=== PATIENT | male | born 1935 | race Caucasian/White ===

== ENCOUNTER 2017-09-03 12:59 | Inpatient (IN) | payer MEDICARE, BC ==
[~2017-09-03] VITALS: Ht 167.6 cm; Wt 103.5 kg
[~2017-09-03 12:59] MED LIST: ALLO100 PO; AMLO5 PO; AMOCLA500 PO; ASPI81CH PO; ASPI81EC; ATOR10; ATOR10 PO; CODACE30; CYAN1000 PO; CYANOCOBALAMIN 1000 MCG; EPIN.3I IM; FINA5 PO; FURO20 PO; Ferrocite324 MG PO; GABA100 PO; GLIP10; GLIP10 PO; HYDACE25S PR; HYDACE5; HYDACE5 PO; HYDCHL12.5; HYDCHL25; Humalog100 UNIT/1 SC; INSLI100I SUBQ; INSULANI; LISI20; LISI20 PO; METF500 PO; Norco 10-325 T1 EACH PO; OMEP20ER; Omeprazole20 M1 PO; PARI1 PO; PIOG15; SIMV10 PO; TAMS.4ER PO; TOUJEO SOL300 UNIT/1 SQ
[2017-09-03 17:30] LABS: BASOPHILS ABSOLUTE AUTO 0.08 K/mm3 (0.00-0.23); BASOPHILS PERCENT AUTO 1 % (0-2); EOSINOPHILS ABSOLUTE AUTO 0.23 K/mm3 (0.00-0.68); EOSINOPHILS PERCENT AUTO 1 % (0-6); Hematocrit 37.7 % (37.0-53.0); Hemoglobin 11.8 g/dL (13.5-17.5); IMMATURE GRAN ABSOLUTE AUTO 0.08 K/mm3 (0.00-0.10); IMMATURE GRAN PERCENT AUTO 1 % (0-1); LYMPHOCYTES ABSOLUTE AUTO 2.48 K/mm3 (0.84-5.20); LYMPHOCYTES PERCENT AUTO 15 % (21-46); MONOCYTES ABSOLUTE AUTO 0.55 K/mm3 (0.16-1.47); MONOCYTES PERCENT AUTO 3 % (4-13); Mean Corpuscular HGB 29.6 pg (26.0-34.0); Mean Corpuscular HGB Conc 31.3 g/dL (31.5-36.5); Mean Corpuscular Volume 95 fL (80-100); Mean Platelet Volume 10.3 fL (9.1-12.4); NEUTROPHILS PERCENT AUTO 79 % (41-73); Platelet Count 250 K/mm3 (150-400); RDW Coefficient Variation 15.7 % (11.7-14.2); RDW Standard Deviation 54.5 fL (35.1-46.3); Red Blood Cell Count 3.98 M/mm3 (4.30-5.90); White Blood Cell Count 16.52 K/mm3 (4.00-11.30)
[2017-09-03 17:41] LABS: Albumin, Blood 3.6 g/dL (3.4-5.0); Albumin/Globulin Ratio 0.8 (0.8-1.8); Bilirubin, Total 1.1 mg/dL (0.1-1.0); Bun/Creatinine Ratio 30.4 (12.0-20.0); Calcium, Blood 10.9 mg/dL (8.5-10.1); Creatinine, Blood 2.63 mg/dL (0.60-1.20); Globulin, Blood 4.3 g/dL (2.2-4.0); Potassium, Blood 4.8 mmol/L (3.5-5.5); Total Protein, Blood 7.9 g/dL (6.4-8.2)
[2017-09-03] MEDS ORDERED: METO2.5 PO (18:23)
[2017-09-03] MEDS ORDERED: LISI20 PO (18:23)
[2017-09-03] MEDS ORDERED: TAMS.4ER PO (18:24)
[2017-09-03] MEDS ORDERED: CALC.25 PO (18:25)
[2017-09-04 00:16] LABS: Source, Urine Clean Catch
[2017-09-04 00:20] LABS: Bilirubin, Urine Neg (Neg); Blood, Urine Neg (Neg); Glucose Qualitative, Urine Neg (Neg); Ketones, Urine Neg (Neg); Leukocyte Esterase, Urine Neg (Neg); Nitrite, Urine Neg (Neg); Protein, Urine Neg (Neg); Urobilinogen, Urine NORM (Normal)
[2017-09-04 00:24] LABS: Appearance, Urine Clear (Clear); Color, Urine Yellow (P-Yellow)
[2017-09-04 05:31] LABS: Hematocrit 33.9 % (37.0-53.0); Hemoglobin 10.6 g/dL (13.5-17.5); Mean Corpuscular HGB 29.4 pg (26.0-34.0); Mean Corpuscular HGB Conc 31.3 g/dL (31.5-36.5); Mean Corpuscular Volume 94 fL (80-100); Mean Platelet Volume 10.1 fL (9.1-12.4); Platelet Count 245 K/mm3 (150-400); RDW Coefficient Variation 15.4 % (11.7-14.2); RDW Standard Deviation 52.9 fL (35.1-46.3); Red Blood Cell Count 3.61 M/mm3 (4.30-5.90); White Blood Cell Count 14.94 K/mm3 (4.00-11.30)
[2017-09-04 05:47] LABS: Albumin, Blood 3.2 g/dL (3.4-5.0); Albumin/Globulin Ratio 0.9 (0.8-1.8); Bilirubin, Total 0.3 mg/dL (0.1-1.0); Bun/Creatinine Ratio 33.8 (12.0-20.0); Calcium, Blood 9.7 mg/dL (8.5-10.1); Creatinine, Blood 2.13 mg/dL (0.60-1.20); Globulin, Blood 3.6 g/dL (2.2-4.0); Potassium, Blood 4.3 mmol/L (3.5-5.5); Total Protein, Blood 6.8 g/dL (6.4-8.2)
[2017-09-04 09:56] LABS: Campylobacter Sp Not Detected (NOT DETECT); Cryptosporidium Not Detected (NOT DETECT); E. Coli O157 Not Detected (NOT DETECT); Enteroaggregative E. coli-EAEC Not Detected (NOT DETECT); Enteropathogenic E. coli-EPEC Not Detected (NOT DETECT); Enterotoxigenic E. coli-ETEC Not Detected (NOT DETECT); Plesiomonas Shigelloides Not Detected (NOT DETECT); Salmonella Sp Not Detected (NOT DETECT); Shiga Toxin-prod E. coli-STEC Not Detected (NOT DETECT); Shigella/Enteroin E. coli-EIEC Not Detected (NOT DETECT); Vibrio Cholerae Not Detected (NOT DETECT); Vibrio Sp Not Detected (NOT DETECT); Yersinia Enterocolitica Not Detected (NOT DETECT)
[2017-09-04 09:57] LABS: Adenovirus F 40/41 Not Detected (NOT DETECT); Astrovirus Not Detected (NOT DETECT); Cyclospora Cayetanensis Not Detected (NOT DETECT); Entamoeba Histolytica Not Detected (NOT DETECT); Giardia Lamblia Not Detected (NOT DETECT); Norovirus GI/GII Not Detected (NOT DETECT); Rotavirus A Not Detected (NOT DETECT); Sapovirus Not Detected (NOT DETECT)
[2017-09-04] MEDS ORDERED: CHOL10002 PO (12:24)
[2017-09-04] MEDS ORDERED: CENTRUM SILVER1 EAC4 PO (12:24)
[2017-09-04] MEDS ORDERED: COQ10 PO (12:26)
[2017-09-04] MEDS ORDERED: Toviaz8 MG PO (14:43)
[2017-09-05 05:23] LABS: BASOPHILS ABSOLUTE AUTO 0.05 K/mm3 (0.00-0.23); BASOPHILS PERCENT AUTO 1 % (0-2); EOSINOPHILS ABSOLUTE AUTO 0.48 K/mm3 (0.00-0.68); EOSINOPHILS PERCENT AUTO 5 % (0-6); Hematocrit 33.5 % (37.0-53.0); Hemoglobin 10.5 g/dL (13.5-17.5); IMMATURE GRAN ABSOLUTE AUTO 0.04 K/mm3 (0.00-0.10); IMMATURE GRAN PERCENT AUTO 0 % (0-1); LYMPHOCYTES ABSOLUTE AUTO 2.52 K/mm3 (0.84-5.20); LYMPHOCYTES PERCENT AUTO 24 % (21-46); MONOCYTES ABSOLUTE AUTO 0.53 K/mm3 (0.16-1.47); MONOCYTES PERCENT AUTO 5 % (4-13); Mean Corpuscular HGB 28.9 pg (26.0-34.0); Mean Corpuscular HGB Conc 31.3 g/dL (31.5-36.5); Mean Corpuscular Volume 92 fL (80-100); Mean Platelet Volume 10.5 fL (9.1-12.4); NEUTROPHILS ABSOLUTE AUTO 7.09 K/mm3 (1.96-9.15); NEUTROPHILS PERCENT AUTO 66 % (41-73); Platelet Count 235 K/mm3 (150-400); RDW Coefficient Variation 15.7 % (11.7-14.2); RDW Standard Deviation 53.1 fL (35.1-46.3); Red Blood Cell Count 3.63 M/mm3 (4.30-5.90); White Blood Cell Count 10.71 K/mm3 (4.00-11.30)
[2017-09-05 05:49] LABS: Anion Gap 7 mmol/L (6-16); Blood Urea Nitrogen 55 mg/dL (8-24); Bun/Creatinine Ratio 32.2 (12.0-20.0); CO2, Blood 20 mmol/L (21-32); Calcium, Blood 9.4 mg/dL (8.5-10.1); Chloride, Blood 118 mmol/L (98-108); Creatinine, Blood 1.71 mg/dL (0.60-1.20); Glomerular Filtration Rate 41 (60-); Glucose, Blood 110 mg/dL (70-99); Phosphorus, Blood 1.9 mg/dL (2.5-4.9); Potassium, Blood 4.4 mmol/L (3.5-5.5); Sodium, Blood 145 mmol/L (136-145)
[2017-09-05] MEDS ORDERED: LIDO700A20 TOP (12:37)
== END 2017-09-05 14:23 | disposition home or self-care (01) | DRG 872 ==
LOC: ER 12:59 → MEDS 21:08 → ENPENDDIS 09-05 11:14 → MEDS 09-05 14:23
PROVIDERS: Family Medicine; Internal Medicine; Physician Assistant
DX: A41.9 Sepsis, unspecified organism (principal); N17.9 Acute kidney failure, unspecified; M54.9 Dorsalgia, unspecified; Z79.4 Long term (current) use of insulin; Z79.82 Long term (current) use of aspirin; N18.3 Chronic kidney disease, stage 3 (moderate); E11.22 Type 2 diabetes mellitus with diabetic chronic kidney disease; I12.9 Hypertensive chronic kidney disease with stage 1 through stage 4 chronic kidney disease, or unspecified chronic kidney disease; E86.0 Dehydration; N40.0 Benign prostatic hyperplasia without lower urinary tract symptoms; E78.00 Pure hypercholesterolemia, unspecified; K52.9 Noninfective gastroenteritis and colitis, unspecified; M25.551 Pain in right hip; M79.2 Neuralgia and neuritis, unspecified; E86.9 Volume depletion, unspecified; D63.1 Anemia in chronic kidney disease; Z98.52 Vasectomy status
CPT/HCPCS: 36415; 74176; 80053; 80069; 81003; 82272; 82947; 83690; 85025; 85027; 87507; 93005; 93010; 96361; 96374; 97110; 97116; 97161; 97165; 97535; 99285-25; G8978; G8979; G8987; G8988; G8989; J1650; J3010; J7030

== ENCOUNTER 2018-02-17 05:47 | Day surgery (SDC) | payer MEDICARE, BC ==
[~2018-02-17] VITALS: Ht 167.6 cm; Wt 97.5 kg
[~2018-02-17 05:47] MED LIST changes: +AMLO5; +CALC.25 PO; +CENTRUM SILVER1 EAC4 PO; +CHOL10002 PO; +COQ10 PO; +CYCL10 PO; +Cyclobenzaprine5 MG PO; +FERROUS SULFATE PO; +FURO20; +GABA400; +GABA400 PO; +LIDO700A20 TOP; +METO2.5; +METO2.5 PO; +Norvasc2.5 MG PO; +Percocet 5-3251 EACH PO; +TIZANIDINE HCL4 MG PO; +TOUJEO MAX300 UNIT/1; +TOUJEO MAX300 UNIT/1 SC; +Toviaz8 MG PO; +VITAMIN B122500 MC1 PO
== END 2018-02-17 22:43 | disposition home or self-care (01) ==
LOC: ORSCMMR 05:47 → ORD 07:30 → ORSCMMR 22:43
DX: M48.061 Spinal stenosis, lumbar region without neurogenic claudication (principal); Z53.9 Procedure and treatment not carried out, unspecified reason
CPT/HCPCS: 82947; J0690; J3010; J3370; J7120

== ENCOUNTER 2018-03-03 07:16 | Day surgery (SDC) | payer MEDICARE, BC ==
--- NOTE | 2018-03-03 09:35 | NUR ---
Surgical site prepped with 2% Chlorhexidine cloth wipe. History, Chart, Medications and Allergies reviewed before start of procedure. Lungs clear T/O to Auscultation. Patient confirms NPO status and agrees with scheduled surgery. Pre-Op teaching done. Pt verbalizes understanding. Patient reports completing Chlorhexadine shower X2 prior to admission to hospital.
--- NOTE | 2018-03-03 14:03 | NUR ---
03/03/18 1403 Jaimie Brand 1130 CEFAZOLIN 2000 MG IVPB ADMINISTERED PRE OP ANTIBIOTICS BY WA.MIAN
--- NOTE | 2018-03-03 15:35 | NUR ---
PT ARRIVED TO ROOM 218 FROM PACU PT IS S/P MICHEL L3-4 PT DENIES ROWDY AT THIS TIME GOOD STRENGHT BILAT PT GIVEN CL TO START NO NAUSEA PT FAMILY AT BEDSIDE ORIENTED TO ROOM
--- NOTE | 2018-03-03 17:20 | NUR ---
DR Nilam ROACH ANS SERVICE CALLED DR GARNICA ON MESSAGE LEFT RE STARTING PT HOME MEDS
--- NOTE | 2018-03-03 18:25 | NUR ---
DR GARNICA CALLED ORDERED PT'S HPME MEDS PT UNSURE WHEN HE HAD HIS DIURETICS PT FAMILY TO CHECK ON THEM AT HOME FOR HIM AND BRING HIS INSULIN TOUKEI PT TAKES IN AM PT ON RA BIOX 95-97%
--- NOTE | 2018-03-04 06:30 | NUR ---
SUMMARY: POD 1 L3-[address] ROACH. DRESSING REMAINS C/D/I. VSS, AFEBRILE, ROOM AIR. PT VOIDING CLEAR, YELLOW URINE. CBG RESULTS OF 366 MG/DL @ HS AND PT MEDICATED WITH 15 UNITS HUMOLOG. TOLERATING REG DIET WELL AND PAIN WELL CONTROLLED WITH 10MG ROXICODONE X3 THIS SHIFT. ANTICIPATE PT/OT AND POSSIBLE DC HOME LATER THIS DAY.
[2018-03-04] MEDS ORDERED: OXYC5 PO (17:05)
--- NOTE | 2018-03-04 17:59 | NUR ---
provided pt with discharge teaching, written prescriptions, removed peripheral IV wnl. pt and family caregivers state understanding of discharge instructions. pt and both escorted to awaiting vehicle via wheelchair with belongings in lap.
== END 2018-03-04 18:02 | disposition home health service (06) ==
LOC: ORSCMMR 07:16 → ORD 10:30 → SURS 15:35 → ORSCMMR 03-04 18:02
PROVIDERS: Orthopaedic Surgery
PROC: 01NB0ZZ Release Lumbar Nerve, Open Approach (ICD-10-PCS; principal; 2018-03-03 10:30)
DX: M48.062 Spinal stenosis, lumbar region with neurogenic claudication (principal); I10 Essential (primary) hypertension; E11.9 Type 2 diabetes mellitus without complications; E78.00 Pure hypercholesterolemia, unspecified; Z79.4 Long term (current) use of insulin; Z79.82 Long term (current) use of aspirin; Z79.899 Other long term (current) drug therapy
CPT/HCPCS: 82947; 97110; 97116; 97161; 97530; J0690; J1100; J1885; J2250; J2405; J3010; J3370; J7120

== ENCOUNTER → 2018-05-08 | Outpatient (CLI) | payer MEDICARE, BC ==
[~2018-05-08] MED LIST changes: +OXYC5 PO
[2018-05-08 19:35] LABS: Influenza A Positive (NEGATIVE); Influenza B Negative (NEGATIVE)
== END | disposition home or self-care (01) ==
LOC: LAB 16:26 → LAB SHORT 16:26
DX: R09.89 Other specified symptoms and signs involving the circulatory and respiratory systems (principal); R11.0 Nausea; R63.0 Anorexia
CPT/HCPCS: 87804

== ENCOUNTER 2018-10-16 14:04 | Emergency (ER) | payer MEDICARE, BC ==
[~2018-10-16] VITALS: Ht 167.6 cm; Wt 99.8 kg
[2018-10-16 16:51] LABS: BASOPHILS ABSOLUTE AUTO 0.07 K/mm3 (0.00-0.23); BASOPHILS PERCENT AUTO 1 % (0-2); EOSINOPHILS ABSOLUTE AUTO 0.41 K/mm3 (0.00-0.68); EOSINOPHILS PERCENT AUTO 3 % (0-6); Hematocrit 43.1 % (37.0-53.0); Hemoglobin 13.7 g/dL (13.5-17.5); IMMATURE GRAN ABSOLUTE AUTO 0.04 K/mm3 (0.00-0.10); IMMATURE GRAN PERCENT AUTO 0 % (0-1); LYMPHOCYTES ABSOLUTE AUTO 2.92 K/mm3 (0.84-5.20); LYMPHOCYTES PERCENT AUTO 24 % (21-46); MONOCYTES ABSOLUTE AUTO 0.55 K/mm3 (0.16-1.47); MONOCYTES PERCENT AUTO 5 % (4-13); Mean Corpuscular HGB 29.8 pg (26.0-34.0); Mean Corpuscular HGB Conc 31.8 g/dL (31.5-36.5); Mean Corpuscular Volume 94 fL (80-100); Mean Platelet Volume 10.2 fL (9.1-12.4); NEUTROPHILS ABSOLUTE AUTO 8.33 K/mm3 (1.96-9.15); NEUTROPHILS PERCENT AUTO 68 % (41-73); Platelet Count 229 K/mm3 (150-400); RDW Coefficient Variation 16.4 % (11.7-14.2); RDW Standard Deviation 56.3 fL (35.1-46.3); Red Blood Cell Count 4.59 M/mm3 (4.30-5.90); White Blood Cell Count 12.32 K/mm3 (4.00-11.30)
[2018-10-16 17:08] LABS: International Normalized Ratio 0.99; Prothrombin Time Results 10.5 Sec (9.7-11.5)
[2018-10-16 18:00] LABS: Albumin, Blood 3.6 g/dL (3.4-5.0); Albumin/Globulin Ratio 0.9 (0.8-1.8); Bilirubin, Total 0.5 mg/dL (0.1-1.0); Bun/Creatinine Ratio 29.6 (12.0-20.0); Calcium, Blood 10.6 mg/dL (8.5-10.1); Creatinine, Blood 1.69 mg/dL (0.60-1.20); Globulin, Blood 3.9 g/dL (2.2-4.0); Potassium, Blood 4.3 mmol/L (3.5-5.5); Total Protein, Blood 7.5 g/dL (6.4-8.2)
[2018-10-16] MEDS ORDERED: Lovenox100 MG/1 M SC (18:08)
== END 2018-10-16 18:47 | disposition home or self-care (01) ==
LOC: ER 14:04
PROVIDERS: Physician Assistant
DX: I82.431 Acute embolism and thrombosis of right popliteal vein (principal); I10 Essential (primary) hypertension; E11.9 Type 2 diabetes mellitus without complications; Z91.030 Bee allergy status; Z79.4 Long term (current) use of insulin; Z79.899 Other long term (current) drug therapy; Z79.82 Long term (current) use of aspirin; Z96.653 Presence of artificial knee joint, bilateral
CPT/HCPCS: 80053; 85025; 85610; 85730; 93970; 96372; 99284-25; J1650

== ENCOUNTER → 2022-03-14 | Outpatient (CLI) | payer MEDICARE, BC ==
[~2022-03-14] MED LIST changes: +Lovenox100 MG/1 M SC
== END ==
LOC: LAB SHORT 08:22 → PLD 08:22
DX: D48.5 Neoplasm of uncertain behavior of skin (principal)
CPT/HCPCS: 88305

== ENCOUNTER 2022-12-24 15:48 | Emergency (ER) | payer OTHER, MEDICARE, BC ==
[~2022-12-24] VITALS: Ht 170.2 cm; Wt 102.1 kg
[~2022-12-24 15:48] MED LIST changes: +HUMALOG KW100 UNIT/1 SC; -TOUJEO MAX300 UNIT/1 SC; +TOUJEO MAX300 UNIT/2 SC
[2022-12-24] MEDS ORDERED: Robaxin750 MG PO (18:09)
[2022-12-24] MEDS ORDERED: LIDOCAINE1 EACH TOP (18:09)
[2022-12-24 18:40] VITALS: BP 180/82
== END 2022-12-24 18:22 | disposition home or self-care (01) ==
LOC: ER 15:48
DX: M54.50 Low back pain, unspecified (principal); M25.552 Pain in left hip; W01.198A Fall on same level from slipping, tripping and stumbling with subsequent striking against other object, initial encounter; I10 Essential (primary) hypertension; E11.9 Type 2 diabetes mellitus without complications; Z91.030 Bee allergy status; Z79.899 Other long term (current) drug therapy; Z79.4 Long term (current) use of insulin; Z79.84 Long term (current) use of oral hypoglycemic drugs
CPT/HCPCS: 73522; 96374; 96375; 99284-25; A9270; J1885; J2270

== ENCOUNTER 2022-12-27 18:27 | Inpatient (IN) | payer MEDICARE, BC ==
[~2022-12-27] VITALS: Ht 167.6 cm; Wt 103.2 kg
[~2022-12-27 18:27] MED LIST changes: +LIDOCAINE1 EACH TOP; +Robaxin750 MG PO
[2022-12-27 19:17] LABS: BASOPHILS ABSOLUTE AUTO 0.05 K/mm3 (0.00-0.23); BASOPHILS PERCENT AUTO 0 % (0-2); EOSINOPHILS ABSOLUTE AUTO 0.03 K/mm3 (0.00-0.68); EOSINOPHILS PERCENT AUTO 0 % (0-6); Hematocrit 42.8 % (37.0-53.0); Hemoglobin 13.7 g/dL (13.5-17.5); IMMATURE GRAN ABSOLUTE AUTO 0.08 K/mm3 (0.00-0.10); IMMATURE GRAN PERCENT AUTO 1 % (0-1); LYMPHOCYTES PERCENT AUTO 11 % (21-46); MONOCYTES ABSOLUTE AUTO 0.63 K/mm3 (0.16-1.47); MONOCYTES PERCENT AUTO 4 % (4-13); Mean Corpuscular Volume 91 fL (80-100); Mean Platelet Volume 9.8 fL (9.1-12.4); NEUTROPHILS ABSOLUTE AUTO 13.23 K/mm3 (1.96-9.15); NEUTROPHILS PERCENT AUTO 84 % (41-73); Platelet Count 272 K/mm3 (150-400); RDW Coefficient Variation 15.6 % (11.7-14.2); RDW Standard Deviation 52.4 fL (35.1-46.3); Red Blood Cell Count 4.73 M/mm3 (4.30-5.90); White Blood Cell Count 15.82 K/mm3 (4.00-11.30)
[2022-12-27 19:37] LABS: Albumin/Globulin Ratio 0.7 (0.8-1.8); Bilirubin, Total 0.7 mg/dL (0.1-1.0); Bun/Creatinine Ratio 29.5 (12.0-20.0); Calcium, Blood 9.1 mg/dL (8.5-10.1); Creatinine, Blood 1.56 mg/dL (0.60-1.20); Globulin, Blood 4.4 g/dL (2.2-4.0); Magnesium, Blood 2.2 mg/dL (1.6-2.4); Potassium, Blood 4.5 mmol/L (3.5-5.5); Total Protein, Blood 7.4 g/dL (6.4-8.2)
[2022-12-27 22:35] LABS: Thyroid Stimulating Hormone 0.945 uIU/mL (0.360-4.800)
[2022-12-27 23:42] LABS: Influenza A, PCR NEGATIVE (NEGATIVE); Influenza B, PCR NEGATIVE (NEGATIVE); SARS-Cov-2 (COVID-19) PCR, MMC NEGATIVE (NEGATIVE)
[2022-12-28] VITALS (8 sets, daily range): BP systolic 92–157; BP diastolic 68–109
[2022-12-28] LABS: Resp Syncytial Virus, PCR POSITIVE (NEGATIVE)
[2022-12-28 00:48] LABS: Source, Urine Clean Catch
[2022-12-28 01:08] LABS: Bilirubin, Urine Neg (Neg); Blood, Urine 5+ (Neg); Glucose Qualitative, Urine Neg (Neg); Ketones, Urine 1+ (Neg); Leukocyte Esterase, Urine 2+ (Neg); Nitrite, Urine Neg (Neg); Protein, Urine 1+ (Neg); Specific Gravity, Urine 1.015 (1.003-1.022); Urobilinogen, Urine NORM (Normal)
[2022-12-28 01:15] LABS: Appearance, Urine Hazy (Clear); Color, Urine Yellow (P-Yellow)
[2022-12-28 01:17] LABS: Bacteria Mod /hpf; Red Blood Cells, Urine 25-50 /hpf (0-2); Squamous Epithelial Cells Few /hpf (Few); White Blood Cells, Urine 25-50 /hpf (0-5)
[2022-12-28 02:28] LABS: Bun/Creatinine Ratio 29.9 (12.0-20.0); Calcium, Blood 8.8 mg/dL (8.5-10.1); Creatinine, Blood 1.54 mg/dL (0.60-1.20); Magnesium, Blood 2.3 mg/dL (1.6-2.4); Potassium, Blood 4.1 mmol/L (3.5-5.5)
[2022-12-28 04:56] LABS: BASOPHILS ABSOLUTE AUTO 0.06 K/mm3 (0.00-0.23); BASOPHILS PERCENT AUTO 0 % (0-2); EOSINOPHILS ABSOLUTE AUTO 0.15 K/mm3 (0.00-0.68); EOSINOPHILS PERCENT AUTO 1 % (0-6); Hematocrit 39.5 % (37.0-53.0); Hemoglobin 12.6 g/dL (13.5-17.5); IMMATURE GRAN ABSOLUTE AUTO 0.07 K/mm3 (0.00-0.10); IMMATURE GRAN PERCENT AUTO 1 % (0-1); LYMPHOCYTES ABSOLUTE AUTO 5.24 K/mm3 (0.84-5.20); LYMPHOCYTES PERCENT AUTO 35 % (21-46); MONOCYTES ABSOLUTE AUTO 0.92 K/mm3 (0.16-1.47); MONOCYTES PERCENT AUTO 6 % (4-13); Mean Corpuscular HGB Conc 31.9 g/dL (31.5-36.5); Mean Corpuscular Volume 91 fL (80-100); Mean Platelet Volume 9.9 fL (9.1-12.4); NEUTROPHILS ABSOLUTE AUTO 8.69 K/mm3 (1.96-9.15); NEUTROPHILS PERCENT AUTO 57 % (41-73); Platelet Count 264 K/mm3 (150-400); RDW Coefficient Variation 15.6 % (11.7-14.2); RDW Standard Deviation 52.4 fL (35.1-46.3); Red Blood Cell Count 4.35 M/mm3 (4.30-5.90); White Blood Cell Count 15.13 K/mm3 (4.00-11.30)
[2022-12-28 05:24] LABS: International Normalized Ratio 1.24; Prothrombin Time Results 12.9 Sec (9.7-11.5)
[2022-12-28 05:27] LABS: Anti-Xa UFH, PHA Monitoring >1.50 IU/mL; Bun/Creatinine Ratio 28.5 (12.0-20.0); Calcium, Blood 8.3 mg/dL (8.5-10.1); Creatinine, Blood 1.51 mg/dL (0.60-1.20); Potassium, Blood 3.8 mmol/L (3.5-5.5)
--- NOTE | 2022-12-28 17:35 | NUR ---
"Spiritual Care | Pt. request Pt. is awake in bed and welcomes my visit. Pt. verbalized interest in whether casino host Tim was in the building, as they had developed rapport in the past. Pt. is pleasant. Facilitated a life review. Pt. displayed an evidence of being aware and engaged, and no evidence of anxiety. Prayed with Pt. Pt. verbalized gratitude for the the spiritual care visit. Pt. requested that this casino host inform Soren that he is in the hospital."
--- NOTE | 2022-12-28 18:48 | NUR ---
SHIFT SUMMARY PATIENT NEW ADMIT TO UNIT FROM ER FOR AFLUTTER RVR AND LUMBAR AND LEFT HIP PAIN. ALERT, ORIENTED, PLEASANT, COOPERATIVE. SEVERE LEFT HIP PAIN WITH MOVEMENT, SLIDE TRANSFERRED FROM [facility] TO BED. MANAGED PAIN WITH IV DILAUDID. 2L O2 VIA NC WEANED TO ROOM AIR. AFLUTTER AT 140'S ON TELE, AMIO GTT RUNNING. STARTED PO METOPROLOL, AND DIGOXIN IV PUSHES. HEPARIN GTT STARTED. NS INFUSING. ATTENDS IN PLACE AND CHANGED PRN. TOLERATING SIPS OF WATER, ACHS, BLOOD SUGAR STABLE. UPDATED BOTH DAUGHTERS OVER THE PHONE. FAMILY IS REQUESTING A CARDIOLOGY CONSULT, WILL NOTIFY DR AGUILAR. WILL REPORT TO AIR COMPRESSOR MECHANIC RN.
[2022-12-29] VITALS (13 sets, daily range): BP systolic 85–148; BP diastolic 58–97
--- NOTE | 2022-12-29 00:54 | NUR ---
UPDATE CALL PLACED TO RESIDENT WITH UPDATE ON PATIENT CONDITION. PATIENT REMAINS A/O x4, DROWSY BUT WAKES TO VERBAL STIMULI. TELE CONTINUES TO READ ALFUTTER WITH RATE 140-150. AMIO GTT FINISHED INFUSING AT 2300. SEE EMAR FOR OTHER MEDICATION ADMINISTRATIONS. BLOOD PRESSURE HAS BEEN TRENDING DOWN SINCE START OF SHIFT, SEE VITALS. RESIDENT STATED SHE WILL DISCUSS WITH ATTENDING, NO NEW ORDERS RECEIVED AT THIS TIME.
[2022-12-29 02:27] LABS: BASOPHILS ABSOLUTE AUTO 0.06 K/mm3 (0.00-0.23); BASOPHILS PERCENT AUTO 0 % (0-2); EOSINOPHILS ABSOLUTE AUTO 0.32 K/mm3 (0.00-0.68); EOSINOPHILS PERCENT AUTO 2 % (0-6); Hematocrit 38.8 % (37.0-53.0); Hemoglobin 12.3 g/dL (13.5-17.5); IMMATURE GRAN ABSOLUTE AUTO 0.09 K/mm3 (0.00-0.10); IMMATURE GRAN PERCENT AUTO 1 % (0-1); LYMPHOCYTES ABSOLUTE AUTO 3.93 K/mm3 (0.84-5.20); LYMPHOCYTES PERCENT AUTO 26 % (21-46); MONOCYTES ABSOLUTE AUTO 0.88 K/mm3 (0.16-1.47); MONOCYTES PERCENT AUTO 6 % (4-13); Mean Corpuscular HGB 28.7 pg (26.0-34.0); Mean Corpuscular HGB Conc 31.7 g/dL (31.5-36.5); Mean Corpuscular Volume 91 fL (80-100); Mean Platelet Volume 9.7 fL (9.1-12.4); NEUTROPHILS ABSOLUTE AUTO 9.72 K/mm3 (1.96-9.15); NEUTROPHILS PERCENT AUTO 65 % (41-73); Platelet Count 276 K/mm3 (150-400); RDW Coefficient Variation 15.7 % (11.7-14.2); RDW Standard Deviation 52.2 fL (35.1-46.3); Red Blood Cell Count 4.28 M/mm3 (4.30-5.90)
[2022-12-29 02:39] LABS: Bun/Creatinine Ratio 28.9 (12.0-20.0); Calcium, Blood 8.2 mg/dL (8.5-10.1); Creatinine, Blood 1.49 mg/dL (0.60-1.20); Magnesium, Blood 2.2 mg/dL (1.6-2.4); Potassium, Blood 4.2 mmol/L (3.5-5.5)
--- NOTE | 2022-12-29 03:15 | NUR ---
UPDATE CALL RECEIVED FROM HOSPITALIST BEATRIZ. ORDERS RECIEVED FOR LABS TO BE DRAWN, FLUID ORDER CHANGED, CARDIOLOGY CONSULT AND PATIENT TO BE NPO. HR REMAINING 145-148, MANUAL BP 122/86. NO OTHER CHANGES, WILL CONTINUE TO MONITOR.
--- NOTE | 2022-12-29 06:05 | NUR ---
SHIFT SUMMARY PATIENT ALERT AND ORIENTED x4, ABLE TO MAKE NEEDS KNOWN TO STAFF, HR CONTINUES TO RUN 140s DESPITE INTERVENTIONS. PATIENT WITH SOFT BPs AT TIMES. DENIES CHEST PAIN OR SOB. MEDICATED PER EMAR FOR PAIN/SPASMS. HEAT PAD PROVIDED FOR COMFORT. USING URINAL WITH ASSISTANCE, DARK YELLOW URINE OUT. PATIENT DECLINING TURNS AT TIMES DUE TO SPASMS OR PAIN. CARDIOLOGY CONSULTED FOR THIS AM, NPO SINCE 0300. NO OTHER CHANGES, SEE PREVIOUS NOTES FOR OTHER UPDATES. WILL REPORT TO DAY SHIFT RN.
[2022-12-29 09:13] LABS: Hematocrit 38.2 % (37.0-53.0); Hemoglobin 12.2 g/dL (13.5-17.5); Mean Corpuscular HGB 29.3 pg (26.0-34.0); Mean Corpuscular HGB Conc 31.9 g/dL (31.5-36.5); Mean Corpuscular Volume 92 fL (80-100); Mean Platelet Volume 9.9 fL (9.1-12.4); Platelet Count 271 K/mm3 (150-400); RDW Coefficient Variation 15.7 % (11.7-14.2); RDW Standard Deviation 52.7 fL (35.1-46.3); Red Blood Cell Count 4.17 M/mm3 (4.30-5.90); White Blood Cell Count 14.95 K/mm3 (4.00-11.30)
[2022-12-29 09:32] LABS: Bun/Creatinine Ratio 28.6 (12.0-20.0); Calcium, Blood 8.1 mg/dL (8.5-10.1); Creatinine, Blood 1.54 mg/dL (0.60-1.20); Potassium, Blood 4.1 mmol/L (3.5-5.5)
--- NOTE | 2022-12-29 13:17 | NUR ---
UPDATE PT DOWN TO CT FOR SCAN. PT C/O OF CHEST PAIN WHILE IN IMAGING. CP CONTINUED WHEN BACK TO ROOM. PT DESCRIBES IT PRESSURE ON TOP OF CHEST. DENIES RADIATING TO ANYWHERE ELSE. CALL PLACED TO MD HODGES. MD HODGES W/ ORDERS FOR EKG, TOPROL, AND NITROPASTE, SEE EMAR.
--- NOTE | 2022-12-29 17:22 | NUR ---
shift summary to continue on update. md prater to room this afternoon. pt states chest pain is worse when breathing. md prater states pleuretic pain. EKG unchanged from previous. nitro paste dc'd. metoprolol po given. Pt a7ox4. sp02>90% on ra. Coughing up davila/clear sputum, audible congested until he coughs. Suction encouraged. telemetry shows afib, hr mostly 150's. bp stable this shift, manual and automatic done, see vitals. Condom cath applied this shift, draining yellow urine. no bm. Pt extremely painful w/ repositioning, medicating per emar, see emar. md sarmiento consulted this shift. fluids finished infusing (x1 bag) this shift. Pt currently resting in room. Call light in reach.
[2022-12-30] VITALS (7 sets, daily range): BP systolic 104–127; BP diastolic 58–86
[2022-12-30 04:41] LABS: Hematocrit 37.5 % (37.0-53.0); Hemoglobin 11.7 g/dL (13.5-17.5)
[2022-12-30 05:16] LABS: Albumin, Blood 2.5 g/dL (3.4-5.0); Anion Gap 8 mmol/L (6-16); Blood Urea Nitrogen 48 mg/dL (8-24); Bun/Creatinine Ratio 25.9 (12.0-20.0); CO2, Blood 20 mmol/L (21-32); Calcium, Blood 8.3 mg/dL (8.5-10.1); Chloride, Blood 116 mmol/L (98-108); Creatinine, Blood 1.85 mg/dL (0.60-1.20); Glomerular Filtration Rate 35 (60-); Glucose, Blood 152 mg/dL (70-99); Magnesium, Blood 2.4 mg/dL (1.6-2.4); Phosphorus, Blood 3.6 mg/dL (2.5-4.9); Potassium, Blood 4.5 mmol/L (3.5-5.5); Sodium, Blood 144 mmol/L (136-145)
--- NOTE | 2022-12-30 06:06 | NUR ---
SHIFT SUMMARY PATIENT DROWSY DURING THE NIGHT BUT WAKES TO VERBAL STIMULI, A/Ox4, ABLE TO MAKE NEEDS KNOWN TO STAFF. BP STABLE, TELE READING AFLUTTER 120-150 DURING THE NIGHT, REMAINED ON RA WITH SPO2 MID 90s. PATIENT REPORTING PAIN DURING THE NIGHT, DESCRIBES IT SHOOTING SPASMS ON LEFT SIDE, MEDICATED PER EMAR. EDUCATED PATIENT ON IMPORTANCE OF TURNING, PATIENT DECLINING REPOSITIONING, STATES "OH THAT WILL JUST SEND ME INTO ORBIT". PATIENT ADJUSTED IN BED OFTEN HE WOULD ALLOW. CONDOM CATH IN PLACE DRAINING DARK YELLOW URING TO GRAVITY. NO OTHER CHANGES DURING THE NIGHT, WILL REPORT TO DAY SHIFT RN.
--- NOTE | 2022-12-30 07:30 | NUR ---
ASSUMED CARE: PT RESTING IN BED AT THIS TIME, EYES CLOSED, EVEN RESPIRTATIONS NOTED. TELE SHOWS AFLUTTER IN 120S AT THIS TIME. NO ACUTE NEEDS OR CONCERNS.
--- NOTE | 2022-12-30 08:56 | NUR ---
DR AGUILAR ROUNDED ON PT AND IS AWARE THAT PT CONTINUES TO C/O PAIN. PT STATES LEFT FLANK THAT MOVES FORWARD TO GROIN. DR AGUILAR STATES IT SOUNDS RELATED TO KIDNEY STONE BUT IMAGING SHOWS NONOBSTRUCTING. STATES HE WILL SPEAK TO UROLOGY AND UPDATE STAFF FURTHER. DR ALSO AWARE THAT PT HAS BEEN REFUSING INSULIN SINCE IT IS DIFFERENT THAN HOME REGIMEN. STATES TO CONTINUE MONITOR CBG AND GOAL IS BELOW 180. STATES HE WILL ORDER MUCINEX FOR COUGH.
--- NOTE | 2022-12-30 13:54 | NUR ---
DR AGUILAR CALLED AND SAID HE SPOKE TO A DR ADEN WHO REVIEWED CT AND DID NOT FEEL THAT PAIN WAS COMING FROM KIDNEY STONE BUT FROM CONSTIPATION. DR AGUILAR AWARE PT ALREADY HAD BM TODAY AND WANTS PT TO HAVE FURTHER. PT EDUCATED ON NEED FOR AMBULATION, ESPECIALLY WITH PAIN MEDICATIONS. PHYSICAL THERAPY ALSO ENCOURAGED AMBULATION
--- NOTE | 2022-12-30 17:38 | NUR ---
SHIFT SUMMARY: PT HAS REMAINED ON RA, IN AFLUTTER ON TELE, CURRENTLY AT 118. MEDICATED X1 FOR PAIN. MEDICATED X1 FOR BM AND PT HAD 2 LARGE BOWEL MOVEMENTS THIS SHIFT. GOT UP TO BSC WITH FWW AND 1 ASSIST ONCE. STATES PAIN IS IMPROVING BUT STILL GETS SOME DISCOMFORT WITH REPOSITIONING. NO ACUTE NEEDS OR CONCERNS AT THIS TIME.
[2022-12-31 04:22] VITALS: BP 115/77
[2022-12-31 04:28] LABS: Hematocrit 37.6 % (37.0-53.0); Hemoglobin 11.9 g/dL (13.5-17.5)
[2022-12-31 04:45] LABS: Albumin, Blood 2.5 g/dL (3.4-5.0); Anion Gap 11 mmol/L (6-16); Blood Urea Nitrogen 78 mg/dL (8-24); Bun/Creatinine Ratio 33.3 (12.0-20.0); CO2, Blood 18 mmol/L (21-32); Calcium, Blood 8.3 mg/dL (8.5-10.1); Chloride, Blood 108 mmol/L (98-108); Creatinine, Blood 2.34 mg/dL (0.60-1.20); Glomerular Filtration Rate 27 (60-); Glucose, Blood 492 mg/dL (70-99); Magnesium, Blood 2.8 mg/dL (1.6-2.4); Phosphorus, Blood 4.3 mg/dL (2.5-4.9); Potassium, Blood 5.1 mmol/L (3.5-5.5); Sodium, Blood 137 mmol/L (136-145)
--- NOTE | 2022-12-31 06:52 | NUR ---
SHIFT SUMMARY PATIENT ALERT AND ORIENTED x4, ABLE TO MAKE NEEDS KNOWN TO STAFF. BP STABLE, TELE READING AFLUTTER 100-110s. SPO2 >92% ON RA. ABDOMEN DISTENDED, PATIENT HAD LARGE BM DURING THE NIGHT, DECLINING ADDITIONAL BOWEL PREP AT THIS TIME. PATIENT REPORTING PAIN DURING THE NIGHT, MEDICATED PER EMAR. TURNED PATIENT WOULD ALLOW. CONDOM CATH IN PLACE DRAING DARK YELLOW URINE TO GRAVITY. 24 HOUR URINE COMPLETED THIS AM. GLUCOSE 492 ON AM LABS, NEW ORDERS PLACED. CT SCAN DONE THIS AM. NO OTHER CHANGES THIS SHIFT, WILL REPORT TO DAY SHIFT RN.
[2022-12-31 06:55] LABS: Protein, Urine Quantitative 14.3 mg/dL (0.0-11.9)
[2022-12-31 08:03] VITALS: BP 106/69
--- NOTE | 2022-12-31 08:52 | NUR ---
ASSUMTION OF CARE PT ALERT, ORIENTED X4; CALM AND COOPERTIVE WITH CARE. PT UP IN RECLINER WITH 1 PERSON ASSIST. PT DENIES PAIN, CHEST PAIN/PRESSURE, SOB, NAUSEA, DIZZINESS AND NUMB/TINGLING. SPO2 >90% ON RA, BREATHING EVEN AND UNLABORED, LS COARSE T/O. TELE ALFUTTER 120'S, BP STABLE. ABD SLIGHT DISTENDED, NONTEDNER WITH NORMOACTIVE BT NOTED. EDEMA NOTED TO RLE >LLE. OTHER VSS. NO OTHER ACUTE CHANGES NOTED. WILL CONTINUE TO MONITOR.
[2022-12-31 11:43] VITALS: BP 109/64
[2022-12-31 15:02] VITALS: BP 96/62
--- NOTE | 2022-12-31 17:23 | NUR ---
Shift Summary Pt apprears to be having visual hallucinations, states there are bugs crawling on the wall/floors and that his dog is at bedside. Notified Dr Harding. Tele 90-120's, other vss. CBG trending down from 400's down to 389, plans to restart lantus this evening. No other acute changes noted. Will continue to monitor.
[2022-12-31 20:16] VITALS: BP 108/68
[2022-12-31 23:26] VITALS: BP 107/73; BP 97/70
[2023-01-01 02:54] VITALS: BP 96/68
[2023-01-01 05:46] LABS: BASOPHILS ABSOLUTE AUTO 0.02 K/mm3 (0.00-0.23); BASOPHILS PERCENT AUTO 0 % (0-2); EOSINOPHILS ABSOLUTE AUTO 0.18 K/mm3 (0.00-0.68); EOSINOPHILS PERCENT AUTO 1 % (0-6); Hematocrit 35.3 % (37.0-53.0); Hemoglobin 11.4 g/dL (13.5-17.5); IMMATURE GRAN ABSOLUTE AUTO 0.12 K/mm3 (0.00-0.10); IMMATURE GRAN PERCENT AUTO 1 % (0-1); LYMPHOCYTES ABSOLUTE AUTO 2.05 K/mm3 (0.84-5.20); LYMPHOCYTES PERCENT AUTO 14 % (21-46); MONOCYTES ABSOLUTE AUTO 0.78 K/mm3 (0.16-1.47); MONOCYTES PERCENT AUTO 5 % (4-13); Mean Corpuscular HGB 29.1 pg (26.0-34.0); Mean Corpuscular HGB Conc 32.3 g/dL (31.5-36.5); Mean Corpuscular Volume 90 fL (80-100); Mean Platelet Volume 10.8 fL (9.1-12.4); NEUTROPHILS ABSOLUTE AUTO 11.78 K/mm3 (1.96-9.15); NEUTROPHILS PERCENT AUTO 79 % (41-73); Platelet Count 309 K/mm3 (150-400); RDW Coefficient Variation 15.5 % (11.7-14.2); Red Blood Cell Count 3.92 M/mm3 (4.30-5.90); White Blood Cell Count 14.93 K/mm3 (4.00-11.30)
--- NOTE | 2023-01-01 06:09 | NUR ---
SHIFT SUMMARY PATIENT ALERT, ORIENTED x3, PATIENT MORE FIDGETY THIS SHIFT AND HAS GOTTEN MINIMAL SLEEP DURING THE NIGHT. PATIENT WILL CONVERSE WITH SELF IN ROOM, WHEN THIS RN ASKS PATIENT WHO HE IS TALKING TO THE PATIENT WILL LAUGH AND STATE "OH I DON'T KNOW". FOLLOWING DIRECTIONS OTHERWISE. BP STABLE, SOFT AT TIMES, TELE READING AFLUTTER 110-120s. PATIENT REMAINED ON RA WITH SPO2 >95%. TURNING PATIENT WOULD ALLOW. CONDOM CATH IN PLACE DRAINING DARK YELLOW URINE TO GRAVITY. NO OTHER SIGNIFICANT CHANGES DURING THE NIGHT, WILL REPORT TO DAY SHIFT RN.
[2023-01-01 06:43] LABS: Albumin, Blood 2.5 g/dL (3.4-5.0); Anion Gap 9 mmol/L (6-16); Blood Urea Nitrogen 94 mg/dL (8-24); Bun/Creatinine Ratio 34.6 (12.0-20.0); CO2, Blood 24 mmol/L (21-32); Calcium, Blood 8.5 mg/dL (8.5-10.1); Chloride, Blood 106 mmol/L (98-108); Creatinine, Blood 2.72 mg/dL (0.60-1.20); Glomerular Filtration Rate 22 (60-); Glucose, Blood 385 mg/dL (70-99); Magnesium, Blood 2.9 mg/dL (1.6-2.4); Phosphorus, Blood 3.7 mg/dL (2.5-4.9); Potassium, Blood 4.3 mmol/L (3.5-5.5); Sodium, Blood 139 mmol/L (136-145)
[2023-01-01 08:05] VITALS: BP 109/79
[2023-01-01 12:20] VITALS: BP 114/76
--- NOTE | 2023-01-01 19:22 | NUR ---
Shift Summary Pt alert, oriented x3; calm and cooperative with care. Pt continues to hallucinate, stating spiders and cats on the wall. Pt reporting pain to left side/back, medicated per emar, placed heating pad and lido patch. Spo2 >90% on ra, coarse ls t/o, moist productive cough noted. Tele aflutter 120-130 this am, restared amio 80-120's, bp stable. Abd distender, soft, nontender. Edema noted rle >lle. Other vss. No other acute changes noted. Report given to oncoming rn.
[2023-01-01 20:35] VITALS: BP 112/71
[2023-01-01 23:48] VITALS: BP 121/71
[2023-01-02] VITALS (12 sets, daily range): BP systolic 104–149; BP diastolic 54–93
--- NOTE | 2023-01-02 04:48 | NUR ---
SHIFT SUMMARY LETHARGIC, ORIENTED TO SELF. CONTINUES TO HAVE VISUAL HALLUCINATIONS. WET, CROUPY COUGH. DEEP SUCTIONING PER RT WITH SMALL AMOUNT OF SPUTUM. C/O BACK PAIN, MEDICATED PER EMAR. SPO2 >92% ON RA. TELE AFLUTTER 80-120. VSS, BED IN LOWEST POSITION WITH CALL LIGHT IN REACH. WILL CONTINUE TO MONITOR AND REPORT TO ONCOMING RN.
[2023-01-02 05:06] LABS: Hematocrit 35.1 % (37.0-53.0); Hemoglobin 11.4 g/dL (13.5-17.5); Mean Corpuscular HGB 29.1 pg (26.0-34.0); Mean Corpuscular HGB Conc 32.5 g/dL (31.5-36.5); Mean Corpuscular Volume 90 fL (80-100); Mean Platelet Volume 10.6 fL (9.1-12.4); Platelet Count 312 K/mm3 (150-400); RDW Coefficient Variation 15.4 % (11.7-14.2); RDW Standard Deviation 50.8 fL (35.1-46.3); Red Blood Cell Count 3.92 M/mm3 (4.30-5.90); White Blood Cell Count 14.95 K/mm3 (4.00-11.30)
[2023-01-02 05:37] LABS: Albumin, Blood 2.7 g/dL (3.4-5.0); Anion Gap 7 mmol/L (6-16); Blood Urea Nitrogen 91 mg/dL (8-24); Bun/Creatinine Ratio 34.9 (12.0-20.0); CO2, Blood 26 mmol/L (21-32); Chloride, Blood 107 mmol/L (98-108); Creatinine, Blood 2.61 mg/dL (0.60-1.20); Glomerular Filtration Rate 23 (60-); Glucose, Blood 276 mg/dL (70-99); Phosphorus, Blood 3.5 mg/dL (2.5-4.9); Potassium, Blood 4.4 mmol/L (3.5-5.5); Sodium, Blood 140 mmol/L (136-145)
[2023-01-02 12:15] LABS: PCO2 Arterial 43.6 mmHg (35-45); pH Blood Arterial 7.42 (7.35-7.45)
--- NOTE | 2023-01-02 18:43 | NUR ---
Shift Summary Pt sleeping this am, wakes to verbal stimuli, oriented to self, place and month/year. Pt appears to be sleeping for majoirty of shift. No reports of hallucinations during shift. Pt reports pain, medicated per emar, heating pad and lidocaine patch in place. Spo2 occasionally dropped to 88-89% while sleeping; ABG this afternoon, results called into Dr Moody, new order to place on 02, pt placed on 2l o2 via nc. New order for Lasix IV 80mg this afternoon per Dr Moody. Tele aflutter this am, converted to sinus 70-80's at approx 1130. Other vss. Speech therapy completed during shift. No other acute changes noted. Updated Dr Moody on urine output during shift, new orders for lasix 160 mg now and cates catheter for strict i&os.
--- NOTE | 2023-01-02 20:45 | NUR ---
CALL TO PHYSICIAN NOTIFIED PHYSICIAN THAT CBG WAS 329 AND THE ONLY NIGHT TIME INSULIN COVERAGE THAT WAS ORDERED WAS LONG ACTING. NO NEW ORDERS AT THIS TIME.
[2023-01-02 21:26] LABS: Source, Urine Foley catheter
[2023-01-02 21:47] LABS: Bilirubin, Urine Neg (Neg); Blood, Urine 3+ (Neg); Glucose Qualitative, Urine 1+ (Neg); Ketones, Urine Neg (Neg); Leukocyte Esterase, Urine 1+ (Neg); Nitrite, Urine Neg (Neg); Protein, Urine Neg (Neg); Specific Gravity, Urine 1.015 (1.003-1.022); Urobilinogen, Urine NORM (Normal)
[2023-01-02 21:57] LABS: Appearance, Urine Clear (Clear); Color, Urine Yellow (P-Yellow)
[2023-01-02 21:59] LABS: Amorphous Light (0-Heavy); Bacteria Few /hpf; Hyaline Casts 0-2 /lpf (0-2); Red Blood Cells, Urine 0-2 /hpf (0-2); Squamous Epithelial Cells Few /hpf (Few); White Blood Cells, Urine 0-2 /hpf (0-5)
[2023-01-03 03:04] VITALS: BP 120/71
[2023-01-03 04:20] LABS: Hematocrit 35.8 % (37.0-53.0); Hemoglobin 11.2 g/dL (13.5-17.5); Mean Corpuscular HGB 28.3 pg (26.0-34.0); Mean Corpuscular HGB Conc 31.3 g/dL (31.5-36.5); Mean Corpuscular Volume 90 fL (80-100); Mean Platelet Volume 10.5 fL (9.1-12.4); Platelet Count 310 K/mm3 (150-400); RDW Coefficient Variation 15.4 % (11.7-14.2); RDW Standard Deviation 50.6 fL (35.1-46.3); Red Blood Cell Count 3.96 M/mm3 (4.30-5.90); White Blood Cell Count 11.68 K/mm3 (4.00-11.30)
--- NOTE | 2023-01-03 04:41 | NUR ---
SHIFT SUMMARY PT A&Ox4, COMMUNICATES NEEDS AND ANSWERS QUESTIONS APPROPRIATELY. BP STABLE, SINUS 60-70's, DENIES CP/PRESSURE. SpO2> 92% 2L VIA NC, DENIES CP/PRESSURE. LAMB CATHETER PLACED PER DR. TATUM, PATENT, DRAINING TO GRAVITY. PT RESTED COMFORTABLY THROUGHOUT NIGHT, DID NOT YELL OUT. NO OTHER EVENTS, WILL REPORT TO ONCOMING RN.
[2023-01-03 04:43] LABS: Albumin, Blood 2.4 g/dL (3.4-5.0); Anion Gap 6 mmol/L (6-16); Blood Urea Nitrogen 83 mg/dL (8-24); Bun/Creatinine Ratio 36.4 (12.0-20.0); CO2, Blood 31 mmol/L (21-32); Calcium, Blood 9.3 mg/dL (8.5-10.1); Chloride, Blood 105 mmol/L (98-108); Creatinine, Blood 2.28 mg/dL (0.60-1.20); Glomerular Filtration Rate 27 (60-); Glucose, Blood 274 mg/dL (70-99); Magnesium, Blood 2.7 mg/dL (1.6-2.4); Phosphorus, Blood 3.6 mg/dL (2.5-4.9); Sodium, Blood 142 mmol/L (136-145)
--- NOTE | 2023-01-03 07:00 | NUR ---
ASSUMPTION OF CARE PT IS ALERT AND ORIENTED. HE HAS A PRODUCTIVE COUGH AND USES THE YANKEUR WHEN NEEDED. HE IS ON 2L NC. 1ST DEGREE HB ON TELE WITH RATE IN 60S. LAMB PATENT AND DRAINING TO GRAVITY. SEE SHIFT ASSESSMENT.
[2023-01-03 09:15] VITALS: BP 107/47
[2023-01-03 10:54] VITALS: BP 98/81
[2023-01-03 15:49] VITALS: BP 100/86
--- NOTE | 2023-01-03 16:34 | NUR ---
TRANSFER PT TRANSFERRED TO 331 AT THIS TIME VIA BED. HE REMAINS ON 4L NC. VSS AT THIS TIME. DAUGHTER AND SON IN LAW ACCOMPANYING PT.
--- NOTE | 2023-01-03 18:46 | NUR ---
PT ARRIVED TO ROOM AT 1715 WITH BELONGINGS AND FAMILY. SUCTION SET UP FOR SELF ORAL SUCTIONING. O2 AT 4L/M. WET RATTLY COUGH NOTED. DRESSING TO BUTTOCKS IN PLACE WITH SMALL "CUT" ON COCCYX. GENERALIZED EDEMA. WILL REPORT CONDITION TO ONCOMING SHIFT.
[2023-01-03 19:50] VITALS: BP 143/63
[2023-01-04 04:18] VITALS: BP 121/61
[2023-01-04 05:40] LABS: Hematocrit 37.9 % (37.0-53.0); Mean Corpuscular HGB 28.8 pg (26.0-34.0); Mean Corpuscular HGB Conc 31.7 g/dL (31.5-36.5); Mean Corpuscular Volume 91 fL (80-100); Mean Platelet Volume 10.9 fL (9.1-12.4); Platelet Count 345 K/mm3 (150-400); RDW Coefficient Variation 15.4 % (11.7-14.2); RDW Standard Deviation 50.6 fL (35.1-46.3); Red Blood Cell Count 4.17 M/mm3 (4.30-5.90); White Blood Cell Count 16.69 K/mm3 (4.00-11.30)
[2023-01-04 06:36] LABS: Albumin, Blood 2.4 g/dL (3.4-5.0); Anion Gap 4 mmol/L (6-16); Blood Urea Nitrogen 67 mg/dL (8-24); Bun/Creatinine Ratio 30.6 (12.0-20.0); CO2, Blood 33 mmol/L (21-32); Calcium, Blood 9.5 mg/dL (8.5-10.1); Chloride, Blood 105 mmol/L (98-108); Creatinine, Blood 2.19 mg/dL (0.60-1.20); Glomerular Filtration Rate 29 (60-); Glucose, Blood 113 mg/dL (70-99); Magnesium, Blood 2.3 mg/dL (1.6-2.4); Phosphorus, Blood 3.7 mg/dL (2.5-4.9); Potassium, Blood 4.1 mmol/L (3.5-5.5); Sodium, Blood 142 mmol/L (136-145)
--- NOTE | 2023-01-04 07:33 | NUR ---
Shift Summary Significant urinary output overnight through condom catheter, around 4,000 mL. No issues with retention. Pt slept well t/o the night, no complaints of back pain. On 4L O2 with suction at the bedside. AOx4.
[2023-01-04 07:56] VITALS: BP 117/55
[2023-01-04 14:38] VITALS: BP 124/63
--- NOTE | 2023-01-04 16:09 | NUR ---
SHIFT SUMMARY: STACEY IS A&OX4. VSS, MAINTAINING SATS ON 4 L NC, NO HOME O2 USE AT BASELINE. CONDOM CATH IN PLACE, 1000 ML FLUID RESTRICTION, ASPIRATION PRECAUTIONS. PT WORKED WITH THERAPY THIS AFTERNOON, ENCOURAGED PT TO BE UP TO THE CHAIR FOR MEALS. PT ABLE TO STAND WITH FWW AND STANDBY ASSIST ONLY. PT IN LIFT ROOM, PT RECOMMENDED LIFT FOR UP TO CHAIR. EDUCATED PT ON ASPIRATION PRECAUTIONS AND FLUID RESTRICTION, WELL PT'S DAUGHTER AT BEDSIDE. EDUCATED PT ON PRESSURE ULCER PRECAUTIONS AND ENCOURAGED PT TO TURN AND REPOSITION FREQUENTLY. PT MEDICATED FOR PAIN PER APR. PT IS LYING IN BED WITH THE CALL LIGHT IN REACH. REPORT WAS GIVEN TO RN ASSUMING CARE.
--- NOTE | 2023-01-04 16:37 | NUR ---
NOTE: RECEIVED REPORT FROM HERBERT BELCHER. ASSUME CARE OF PATIENT AT 1530. PATIENT WORK c PT THIS PM. PATIENT ON 2L O2 VIA NC. NOTED TO HAVE PRODUCTIVE COUGH, USES ORAL SUCTIONED INDEPENDENTLY. PATIENT RECEIVED MUSCLE RELAXER. A/OX4. CALM, PLEASANT, AND COOPERATIVE c CARE PROVIDED. FR OF 1000 MLS. NO NEW ACUTE CHANGES IN PATIENT CONDITION. CALL LIGHT IN REACH.
[2023-01-04 19:52] VITALS: BP 107/57
[2023-01-05 04:19] VITALS: BP 116/59
[2023-01-05 05:51] LABS: Hematocrit 39.7 % (37.0-53.0); Hemoglobin 12.6 g/dL (13.5-17.5)
[2023-01-05 06:14] LABS: Albumin, Blood 2.5 g/dL (3.4-5.0); Anion Gap 5 mmol/L (6-16); Blood Urea Nitrogen 67 mg/dL (8-24); Bun/Creatinine Ratio 28.8 (12.0-20.0); CO2, Blood 35 mmol/L (21-32); Calcium, Blood 9.4 mg/dL (8.5-10.1); Chloride, Blood 101 mmol/L (98-108); Creatinine, Blood 2.33 mg/dL (0.60-1.20); Glomerular Filtration Rate 27 (60-); Glucose, Blood 215 mg/dL (70-99); Magnesium, Blood 2.3 mg/dL (1.6-2.4); Phosphorus, Blood 3.3 mg/dL (2.5-4.9); Potassium, Blood 4.2 mmol/L (3.5-5.5); Sodium, Blood 141 mmol/L (136-145)
--- NOTE | 2023-01-05 07:37 | NUR ---
Shift Summary PT c/o back pain, medicated per Emar and repositioned. Maintaining sats on 4L NC. Condom cath in place, no issues with retention. AOx4, chairfast. 1,000 ML fluid restriction. Pt did not eat much dinner per report but did drink an entire chocolate ensure around 2200.
[2023-01-05 07:49] VITALS: BP 118/66
[2023-01-05 15:30] VITALS: BP 123/54
--- NOTE | 2023-01-05 16:00 | NUR ---
SHIFT SUMMARY: PATIENT A/OX4. ANSWER TO QUESTIONS APPROPRIATELY AND ABLE TO MAKE NEEDS KNOWN. PATIENT DENIES CP/PRESSURE, SOB, DIZZINESS AND N/V. PATIENT ON 2L O2 VIA NC c SPO2 RANGES 91-95%. LUNGS STILL COARSE/DIM T/O TO AUSCULTATIONS. PATIENT HAS MOIST, PRODUCTIVE COUGH, ORAL SUCTIONED INDEPENDENTLY AND ENCOURAGE TO USE FLUTTER VALVE AT BEDSIDE WHEN AWAKE. OPEN SORE TO BUTTOCKS, MIPELEX DRESSING PLACED, AND Q2 TURNED. PATIENT REPORTS PAIN TO BACK c REPOSITIONING AND WHEN HE COUGHS, MEDICATED c PRN PAIN MEDS AND MUSCLE RELAXER c GOOD EFFECT. PATIENT INCONTINENCE OF BLADDER, PIERCE CARE, ATTENDS AND CONDOM CATH PLACED. PATIENT STILL ON 1000 MLS FR, EATING AND DRINKING WELL. PATIENT RECEIVED IV ABX AND SCHEDULED MEDS PER EMAR. VITAL SIGNS REVIEWED. PIV TO L FOREARM AND LAC SALINE LOCKED. BED ALARM ON FOR SAFETY. CALL LIGHT IN REACH.
[2023-01-05 19:18] VITALS: BP 119/48
[2023-01-06 03:03] VITALS: BP 122/54
--- NOTE | 2023-01-06 06:00 | NUR ---
SHIFT SUMMARY PT IS A&O3, BEDREST DUE TO WEAKNESS, 2L NC SATS MID 90'S, VSS, PRN PAIN MEDICATION GIVEN X1 PER MAR FOR LEFT HIP PAIN, NO ACUTE OVERNIGHT EVENTS, CONTINUE POC
[2023-01-06 06:19] LABS: Hematocrit 38.3 % (37.0-53.0); Hemoglobin 12.1 g/dL (13.5-17.5); Mean Corpuscular HGB 28.9 pg (26.0-34.0); Mean Corpuscular HGB Conc 31.6 g/dL (31.5-36.5); Mean Corpuscular Volume 91 fL (80-100); Mean Platelet Volume 10.8 fL (9.1-12.4); Platelet Count 328 K/mm3 (150-400); RDW Coefficient Variation 15.1 % (11.7-14.2); RDW Standard Deviation 50.5 fL (35.1-46.3); Red Blood Cell Count 4.19 M/mm3 (4.30-5.90); White Blood Cell Count 22.15 K/mm3 (4.00-11.30)
[2023-01-06 06:41] LABS: Albumin, Blood 2.2 g/dL (3.4-5.0); Anion Gap 4 mmol/L (6-16); Blood Urea Nitrogen 64 mg/dL (8-24); CO2, Blood 32 mmol/L (21-32); Calcium, Blood 9.1 mg/dL (8.5-10.1); Chloride, Blood 106 mmol/L (98-108); Glomerular Filtration Rate 32 (60-); Glucose, Blood 100 mg/dL (70-99); Magnesium, Blood 2.1 mg/dL (1.6-2.4); Phosphorus, Blood 3.4 mg/dL (2.5-4.9); Potassium, Blood 3.9 mmol/L (3.5-5.5); Sodium, Blood 142 mmol/L (136-145)
[2023-01-06 07:24] VITALS: BP 126/54
[2023-01-06 10:32] LABS: BASOPHILS ABSOLUTE AUTO 0.08 K/mm3 (0.00-0.23); BASOPHILS PERCENT AUTO 0 % (0-2); EOSINOPHILS ABSOLUTE AUTO 1.03 K/mm3 (0.00-0.68); EOSINOPHILS PERCENT AUTO 5 % (0-6); Hematocrit 38.5 % (37.0-53.0); Hemoglobin 12.3 g/dL (13.5-17.5); IMMATURE GRAN ABSOLUTE AUTO 0.09 K/mm3 (0.00-0.10); IMMATURE GRAN PERCENT AUTO 0 % (0-1); LYMPHOCYTES ABSOLUTE AUTO 2.27 K/mm3 (0.84-5.20); LYMPHOCYTES PERCENT AUTO 11 % (21-46); MONOCYTES ABSOLUTE AUTO 1.18 K/mm3 (0.16-1.47); MONOCYTES PERCENT AUTO 6 % (4-13); Mean Corpuscular HGB 29.4 pg (26.0-34.0); Mean Corpuscular HGB Conc 31.9 g/dL (31.5-36.5); Mean Corpuscular Volume 92 fL (80-100); Mean Platelet Volume 11.4 fL (9.1-12.4); NEUTROPHILS ABSOLUTE AUTO 16.92 K/mm3 (1.96-9.15); NEUTROPHILS PERCENT AUTO 78 % (41-73); Platelet Count 346 K/mm3 (150-400); RDW Coefficient Variation 15.1 % (11.7-14.2); RDW Standard Deviation 51.3 fL (35.1-46.3); Red Blood Cell Count 4.18 M/mm3 (4.30-5.90); White Blood Cell Count 21.57 K/mm3 (4.00-11.30)
--- NOTE | 2023-01-06 11:22 | NUR ---
Pastoral care and support provided. Pt was lying recumbent upon entry with his family at the bedside. Daughter Ashlyn reports that the pt has been more lethargic with the medication regimine. Patient opened his eyes with a gentle salutation then proceeded to rest the duration. Ashlyn expresses her internal ponderings related to the patients condition as well as past losses. Emotional guidance and validating feedback were extended congruently. Family were readily accepting of prayer and extended appreciation. They requested that PC Soren visit when he is available as they have an established rapport. Message will be relayed. PC support to remain available as needed.
[2023-01-06 16:40] VITALS: BP 119/44
--- NOTE | 2023-01-06 17:55 | NUR ---
SHIFT SUMMARY PT VERY LETHARGIC THIS AM BUT AROUSABLE. MEDICATED FOR PAIN PER THE EMAR THIS MORNING, DROWSY UNTIL THIS EVENING. HE ATE LITTLE BREAKFAST AND LUNCH, EATING MOST OF HIS DINNER NOW. HE IS MUCH CLEARER NOW AND ABLE TO INTERACT APPROPRIATELY. THE PT RECEIVED A BED BATH AND LINEN CHANGE TODAY. PICTURES OF HIS COCCYX WOUND IN THE CHART AND THE MEPALEX WAS CHANGED. TURNING THE PT Q2. HE WAS ALSO UP IN THE CHAIR FOR LUNCH, TOLERATED IT WELL USING THE LIFT. FAMILY AT THE BS TODAY, SPOKE WITH THE PROVIDER. SPIRITUAL CARE VISITED THE PT AT THE BS TODAY. CALL LIGHT WITHIN REACH, BED IN THE LOWEST POSITION. WILL REPORT TO ONCOMING NURSE.
[2023-01-06 19:25] VITALS: BP 123/48
[2023-01-07 03:18] VITALS: BP 116/65
[2023-01-07 05:44] LABS: BASOPHILS ABSOLUTE AUTO 0.09 K/mm3 (0.00-0.23); BASOPHILS PERCENT AUTO 1 % (0-2); EOSINOPHILS ABSOLUTE AUTO 0.88 K/mm3 (0.00-0.68); EOSINOPHILS PERCENT AUTO 5 % (0-6); Hematocrit 36.8 % (37.0-53.0); Hemoglobin 11.7 g/dL (13.5-17.5); IMMATURE GRAN ABSOLUTE AUTO 0.08 K/mm3 (0.00-0.10); IMMATURE GRAN PERCENT AUTO 1 % (0-1); LYMPHOCYTES ABSOLUTE AUTO 2.39 K/mm3 (0.84-5.20); LYMPHOCYTES PERCENT AUTO 14 % (21-46); MONOCYTES ABSOLUTE AUTO 1.15 K/mm3 (0.16-1.47); MONOCYTES PERCENT AUTO 7 % (4-13); Mean Corpuscular HGB 29.3 pg (26.0-34.0); Mean Corpuscular HGB Conc 31.8 g/dL (31.5-36.5); Mean Corpuscular Volume 92 fL (80-100); Mean Platelet Volume 10.2 fL (9.1-12.4); NEUTROPHILS PERCENT AUTO 74 % (41-73); Platelet Count 319 K/mm3 (150-400); RDW Coefficient Variation 14.8 % (11.7-14.2); RDW Standard Deviation 49.7 fL (35.1-46.3); White Blood Cell Count 17.69 K/mm3 (4.00-11.30)
[2023-01-07 06:07] LABS: Albumin, Blood 2.2 g/dL (3.4-5.0); Anion Gap 4 mmol/L (6-16); Blood Urea Nitrogen 59 mg/dL (8-24); Bun/Creatinine Ratio 27.2 (12.0-20.0); CO2, Blood 33 mmol/L (21-32); Calcium, Blood 9.2 mg/dL (8.5-10.1); Chloride, Blood 107 mmol/L (98-108); Creatinine, Blood 2.17 mg/dL (0.60-1.20); Glomerular Filtration Rate 29 (60-); Glucose, Blood 111 mg/dL (70-99); Magnesium, Blood 2.4 mg/dL (1.6-2.4); Phosphorus, Blood 3.5 mg/dL (2.5-4.9); Potassium, Blood 4.1 mmol/L (3.5-5.5); Sodium, Blood 144 mmol/L (136-145)
--- NOTE | 2023-01-07 06:41 | NUR ---
SHIFT SUMMARY PT IS A&O4, BEDREST AND LIFT DUE TO WEAKNESS, 2L NC SATS MID 90'S, NO COMPLAINTS OF PAIN OVERNIGHT, PT DID HAVE LARGE BM THIS SHIFT, NO ACUTE OVERNIGHT EVENTS CONTINUE POC
[2023-01-07 07:49] VITALS: BP 113/50
--- NOTE | 2023-01-07 13:34 | NUR ---
Upon receiving a referral for spiritual care, I visited the patient. His dtr Ashlyn, is bedside. Patient is known to this author. He tells me about the family unit complications and challenges of his recovery. We talk about his bereavement process after the recent loss of his spouse and his deepest wish to have all his grown children be at peace with one another. Ashlyn shares about her disappointment with the medical system and the loss, struggles and obstacles she has been deeling with. She shares about her greatest wish to have her father well and to be well care for. I encourage self-care, highlight their strength and courage and provide therapeutic listening, grief support gentle halfway house counselor and prayer. Patient and Ashlyn responded well and showed signs of being comforted and encouraged. I will continue to reamin available to patient and family.
--- NOTE | 2023-01-07 17:33 | NUR ---
SHIFT SUMMARY: Pt remains A&Ox3 this shift. VSS. Denies pain. Up to recliner/bsc with gait belt and 2 person ast. Multiple soft BM today. Mepiplex changed. Left buttocks skin tear noted. Continuous pulse ox with reading 92% at rest. Desats low as 84% with activity. Pt using flutter valve frequently. 100ml fluid restriction order in place. Educated daughter Ashlyn on fluid restrictions as 240 ml apple juice brought to room. Pt up in recliner most of pm. No c/o verbalized. Will continue to monitor this shift.
[2023-01-07 18:12] VITALS: BP 117/57
[2023-01-07 20:18] VITALS: BP 124/53
[2023-01-08 02:52] VITALS: BP 116/56
[2023-01-08 05:13] LABS: BASOPHILS ABSOLUTE AUTO 0.05 K/mm3 (0.00-0.23); BASOPHILS PERCENT AUTO 0 % (0-2); EOSINOPHILS ABSOLUTE AUTO 0.75 K/mm3 (0.00-0.68); EOSINOPHILS PERCENT AUTO 5 % (0-6); Hematocrit 37.7 % (37.0-53.0); Hemoglobin 11.8 g/dL (13.5-17.5); IMMATURE GRAN ABSOLUTE AUTO 0.07 K/mm3 (0.00-0.10); IMMATURE GRAN PERCENT AUTO 1 % (0-1); LYMPHOCYTES ABSOLUTE AUTO 2.55 K/mm3 (0.84-5.20); LYMPHOCYTES PERCENT AUTO 17 % (21-46); MONOCYTES ABSOLUTE AUTO 1.03 K/mm3 (0.16-1.47); MONOCYTES PERCENT AUTO 7 % (4-13); Mean Corpuscular HGB 28.8 pg (26.0-34.0); Mean Corpuscular HGB Conc 31.3 g/dL (31.5-36.5); Mean Corpuscular Volume 92 fL (80-100); Mean Platelet Volume 10.2 fL (9.1-12.4); NEUTROPHILS ABSOLUTE AUTO 10.88 K/mm3 (1.96-9.15); NEUTROPHILS PERCENT AUTO 71 % (41-73); Platelet Count 323 K/mm3 (150-400); RDW Coefficient Variation 14.7 % (11.7-14.2); RDW Standard Deviation 49.5 fL (35.1-46.3); White Blood Cell Count 15.33 K/mm3 (4.00-11.30)
[2023-01-08 05:48] LABS: Albumin, Blood 2.2 g/dL (3.4-5.0); Anion Gap 4 mmol/L (6-16); Blood Urea Nitrogen 54 mg/dL (8-24); Bun/Creatinine Ratio 26.3 (12.0-20.0); CO2, Blood 33 mmol/L (21-32); Calcium, Blood 8.9 mg/dL (8.5-10.1); Chloride, Blood 105 mmol/L (98-108); Creatinine, Blood 2.05 mg/dL (0.60-1.20); Glomerular Filtration Rate 31 (60-); Glucose, Blood 76 mg/dL (70-99); Magnesium, Blood 2.3 mg/dL (1.6-2.4); Phosphorus, Blood 3.3 mg/dL (2.5-4.9); Potassium, Blood 3.8 mmol/L (3.5-5.5); Sodium, Blood 142 mmol/L (136-145)
--- NOTE | 2023-01-08 06:53 | NUR ---
SHIFT SUMMARY PT SITTING UP IN CHAIR DURING BEDSIDE ROUNDS, PT ON DROPLET PRECAUTIONS, PT REPORTS PAIN TOLERABLE IN HIP AND BACK, PT TOOK SCHEDULED HS MEDS WITHOUT PROBLEMS, APPLIED 2L OXYGEN NC FOR PT TO TRANSFER TO BED, KEPT 02 ON PT T/O NIGHT, VIDEO GAME CREATOR WNL -BED SLEPT T/O NIGHT - BED LOW POSITION, CALL LIGHT WITHIN REACH, BED ALARM IN PLACE
[2023-01-08 07:40] VITALS: BP 120/54
--- NOTE | 2023-01-08 14:41 | NUR ---
Patient is lying in bed and resting. I conduct a short visit to allow the patient time to futher his rest. He tells me about his progress and improvements and about his dtr's positive view of the spiritual care given to the patient and his family. I provide encouragement and prayer. Patient voices his deep appreciation. I will continue to remain available to patient and family.
[2023-01-08 15:12] VITALS: BP 133/60
--- NOTE | 2023-01-08 18:17 | NUR ---
PT IS A/OX4, PLEASANT AND COOPERATIVE. THE PT IS A 1 PERSON ASSIST UP DUE TO NOT BEING ABLE TO BEND HIS RIGHT KNEE. PT USES THE FWW APPROPRIATLY. PT WAS DORWSY T/O THE DAY. LIDOCAIN PATCHS APPLIED TO THE PT'S LEFT LOWER BACK/HIP HE REQUESTED. THE PT DAUGHTER WAS IN TO VISIT TODAY AND ASSITED WITH THE PT CARE. THE PT WAS UP TO THE CHAIR FOR BREAKFAST AND DINNER TODAY. CALL LIGHT IN REACH. PT APPEARS TO BE COMFORTABLE AT THIS TIME
[2023-01-08 19:51] VITALS: BP 118/55
[2023-01-09 02:52] VITALS: BP 120/55
[2023-01-09 06:42] LABS: Albumin, Blood 2.2 g/dL (3.4-5.0); Anion Gap 0 mmol/L (6-16); Blood Urea Nitrogen 49 mg/dL (8-24); CO2, Blood 34 mmol/L (21-32); Chloride, Blood 107 mmol/L (98-108); Creatinine, Blood 2.04 mg/dL (0.60-1.20); Glomerular Filtration Rate 31 (60-); Glucose, Blood 91 mg/dL (70-99); Magnesium, Blood 2.4 mg/dL (1.6-2.4); Phosphorus, Blood 3.1 mg/dL (2.5-4.9); Potassium, Blood 3.6 mmol/L (3.5-5.5); Sodium, Blood 141 mmol/L (136-145)
--- NOTE | 2023-01-09 06:46 | NUR ---
SHIFT SUMMARY PT LAYING IN BED DURING BEDSIDE ROUNDS, PT ON DROPLET PRECAUTIONS, PT RA AND SATS WNL ON TRAVEL REGISTERED NURSE NICU- PT TOOK SCHEDULED MEDICATIONS AND INSULING AT HS- PT SLEPT T/O NIGHT- CONDOM CATH IN PLACE DRAINING YELLOW URINE, PT REPORTED BEING ABLE TO TURN SELF IN THE NIGHT, PT REPORTS PAIN IN BACK AND HIP HAS DECREASED- BED LOW POSITION, CALL LIGHT WITHIN REACH
[2023-01-09 07:17] LABS: BASOPHILS ABSOLUTE AUTO 0.06 K/mm3 (0.00-0.23); BASOPHILS PERCENT AUTO 0 % (0-2); EOSINOPHILS ABSOLUTE AUTO 0.76 K/mm3 (0.00-0.68); EOSINOPHILS PERCENT AUTO 5 % (0-6); Hemoglobin 11.2 g/dL (13.5-17.5); IMMATURE GRAN ABSOLUTE AUTO 0.07 K/mm3 (0.00-0.10); IMMATURE GRAN PERCENT AUTO 1 % (0-1); LYMPHOCYTES ABSOLUTE AUTO 2.89 K/mm3 (0.84-5.20); LYMPHOCYTES PERCENT AUTO 19 % (21-46); MONOCYTES ABSOLUTE AUTO 0.92 K/mm3 (0.16-1.47); MONOCYTES PERCENT AUTO 6 % (4-13); Mean Corpuscular HGB 28.4 pg (26.0-34.0); Mean Corpuscular HGB Conc 31.1 g/dL (31.5-36.5); Mean Corpuscular Volume 91 fL (80-100); Mean Platelet Volume 10.8 fL (9.1-12.4); NEUTROPHILS ABSOLUTE AUTO 10.27 K/mm3 (1.96-9.15); NEUTROPHILS PERCENT AUTO 69 % (41-73); Platelet Count 338 K/mm3 (150-400); RDW Coefficient Variation 14.4 % (11.7-14.2); RDW Standard Deviation 48.2 fL (35.1-46.3); Red Blood Cell Count 3.95 M/mm3 (4.30-5.90); White Blood Cell Count 14.97 K/mm3 (4.00-11.30)
[2023-01-09 07:51] VITALS: BP 121/54
[2023-01-09] MEDS ORDERED: META800 PO (13:02)
[2023-01-09] MEDS ORDERED: HUMALOG JU100 UNIT/2 SC (13:03)
[2023-01-09] MEDS ORDERED: AMOCLA500 PO (13:04)
[2023-01-09] MEDS ORDERED: Amiodarone HCl200 MG PO (13:04)
[2023-01-09] MEDS ORDERED: ACET325 PO (13:04)
[2023-01-09] MEDS ORDERED: ELIQUIS2.5 MG PO (13:06)
[2023-01-09] MEDS ORDERED: DOCUZEN 8.6-501 EACH PO (13:06)
[2023-01-09] MEDS ORDERED: FURO80 PO (13:07)
[2023-01-09] MEDS ORDERED: GUAI600T33 PO (13:08)
[2023-01-09] MEDS ORDERED: METO50ER PO (13:08)
[2023-01-09] MEDS ORDERED: LIDO700A20 TOP (13:08)
[2023-01-09] MEDS ORDERED: VISBIOME 112.51 EACH PO (13:09)
[2023-01-09] MEDS ORDERED: MIRALAX17 GM PO (13:09)
--- NOTE | 2023-01-09 16:32 | NUR ---
Final prayer and blessing given to patient just prior to discharge.
--- NOTE | 2023-01-09 17:16 | NUR ---
DISCHARGE.\ PT DISCHARGED HOME WITH HOME HEALTH. FAMILY AT BEDSIDE. 3L NC WITH AMBULATION. DISCUSSED DISCHARGE INSTRUCTIONS WITH PT AND DAUGHTER VINCE. NO QUESTIONS OR CONCERNS AT THIS TIME. WILL FOLLOW UP WITH STAFF EDUCATOR AND FUR JOINER. EMPHASIZED IMPORTANCE OF TAKING BP AND HR BEFORE ALL CARDIAC MEDICATIONS. TAKE PRESCRIBED AND PAY CLOSE ATTENTION TO HOLD PARAMETERS. PT AND DAUGHTER VERBALIZED UNDERSTANDING.
== END 2023-01-09 16:43 | disposition home health service (06) | DRG 308 ==
LOC: ER 18:27 → ERHOLD 18:28 → PCU 18:28 → ERHOLD 18:28 → PCU 12-28 11:58 → MEDS 12-28 14:34 → PCU 01-03 11:18 → MEDS 01-03 17:06 → ENPENDDIS 01-09 15:12 → MEDS 01-09 16:43
PROVIDERS: Family Medicine; Internal Medicine; Internal Medicine Nephrology; Student in an Organized Health Care Education/Training Program; ADMIT Internal Medicine
PROC: B24BZZZ Ultrasonography of Heart with Aorta (ICD-10-PCS; 2022-12-30)
PROC: 4A133R1 Monitoring of Arterial Saturation, Peripheral, Percutaneous Approach (ICD-10-PCS; principal; 2023-01-02)
DX: I48.0 Paroxysmal atrial fibrillation (principal); G92.8 Other toxic encephalopathy; J96.01 Acute respiratory failure with hypoxia; N39.0 Urinary tract infection, site not specified; J90 Pleural effusion, not elsewhere classified; J98.11 Atelectasis; N17.9 Acute kidney failure, unspecified; E87.0 Hyperosmolality and hypernatremia; E87.20 Acidosis, unspecified; I48.92 Unspecified atrial flutter; Z66 Do not resuscitate; E11.22 Type 2 diabetes mellitus with diabetic chronic kidney disease; I12.9 Hypertensive chronic kidney disease with stage 1 through stage 4 chronic kidney disease, or unspecified chronic kidney disease; N20.0 Calculus of kidney; B95.2 Enterococcus as the cause of diseases classified elsewhere; N18.30 Chronic kidney disease, stage 3 unspecified; M51.16 Intervertebral disc disorders with radiculopathy, lumbar region; N40.0 Benign prostatic hyperplasia without lower urinary tract symptoms; M47.26 Other spondylosis with radiculopathy, lumbar region; M48.07 Spinal stenosis, lumbosacral region; E78.5 Hyperlipidemia, unspecified; D63.1 Anemia in chronic kidney disease; E86.9 Volume depletion, unspecified; J06.9 Acute upper respiratory infection, unspecified; B97.4 Respiratory syncytial virus as the cause of diseases classified elsewhere; K59.00 Constipation, unspecified; E87.5 Hyperkalemia; E11.65 Type 2 diabetes mellitus with hyperglycemia; E88.09 Other disorders of plasma-protein metabolism, not elsewhere classified; E87.70 Fluid overload, unspecified; Z91.81 History of falling; Z79.4 Long term (current) use of insulin; Z79.82 Long term (current) use of aspirin; Z79.01 Long term (current) use of anticoagulants; Z79.84 Long term (current) use of oral hypoglycemic drugs; Z11.52 Encounter for screening for COVID-19
CPT/HCPCS: 0241U; 31720; 36415; 36416; 36600; 71045; 71046; 72133; 72192; 74150; 76770; 80048; 80053; 80069; 81001; 82803; 82947; 83036; 83605; 83735; 83880; 84156; 84295; 84443; 84484; 85014; 85018; 85025; 85027; 85379; 85520; 85610; 85730; 87077; 87086; 87186; 92526; 92610; 93005; 93010; 93306; 94640; 94664; 94761; 94762; 96365; 96366; 96367; 96375; 96376; 97110; 97110-CQ; 97116-CQ; 97161; 97530; 99285-25; A9270; G0378; J0282; J0290; J0295; J0696; J1160; J1170; J1644; J1815; J1940; J2930; J3010; J3360; J7030; J7050; J7060; Q9967

== ENCOUNTER 2023-04-12 10:18 | Emergency (ER) | payer MEDICARE, BC ==
[~2023-04-12] VITALS: Ht 167.6 cm; Wt 99.8 kg
[~2023-04-12 10:18] MED LIST changes: +ACET325 PO; +Amiodarone HCl200 MG PO; +DOCUZEN 8.6-501 EACH PO; +ELIQUIS2.5 MG PO; +FURO80 PO; +GUAI600T33 PO; +HUMALOG JU100 UNIT/2 SC; +META800 PO; +METO50ER PO; +MIRALAX17 GM PO; +VISBIOME 112.51 EACH PO
[2023-04-12 11:02] LABS: BASOPHILS ABSOLUTE AUTO 0.08 K/mm3 (0.00-0.23); BASOPHILS PERCENT AUTO 1 % (0-2); EOSINOPHILS ABSOLUTE AUTO 0.45 K/mm3 (0.00-0.68); EOSINOPHILS PERCENT AUTO 4 % (0-6); Hematocrit 38.2 % (37.0-53.0); IMMATURE GRAN ABSOLUTE AUTO 0.06 K/mm3 (0.00-0.10); IMMATURE GRAN PERCENT AUTO 1 % (0-1); LYMPHOCYTES ABSOLUTE AUTO 2.17 K/mm3 (0.84-5.20); LYMPHOCYTES PERCENT AUTO 19 % (21-46); MONOCYTES ABSOLUTE AUTO 0.65 K/mm3 (0.16-1.47); MONOCYTES PERCENT AUTO 6 % (4-13); Mean Corpuscular HGB 28.7 pg (26.0-34.0); Mean Corpuscular HGB Conc 31.4 g/dL (31.5-36.5); Mean Corpuscular Volume 91 fL (80-100); Mean Platelet Volume 10.4 fL (9.1-12.4); NEUTROPHILS ABSOLUTE AUTO 8.28 K/mm3 (1.96-9.15); NEUTROPHILS PERCENT AUTO 71 % (41-73); Platelet Count 333 K/mm3 (150-400); RDW Coefficient Variation 15.6 % (11.7-14.2); RDW Standard Deviation 52.3 fL (35.1-46.3); Red Blood Cell Count 4.18 M/mm3 (4.30-5.90); White Blood Cell Count 11.69 K/mm3 (4.00-11.30)
[2023-04-12 11:29] LABS: Albumin, Blood 2.9 g/dL (3.4-5.0); Albumin/Globulin Ratio 0.6 (0.8-1.8); Bilirubin, Total 0.4 mg/dL (0.1-1.0); Calcium, Blood 10.1 mg/dL (8.5-10.1); Creatinine, Blood 2.14 mg/dL (0.60-1.20); Globulin, Blood 4.7 g/dL (2.2-4.0); Potassium, Blood 4.4 mmol/L (3.5-5.5); Total Protein, Blood 7.6 g/dL (6.4-8.2)
[2023-04-12 14:43] LABS: Influenza A, PCR NEGATIVE (NEGATIVE); Influenza B, PCR NEGATIVE (NEGATIVE); Resp Syncytial Virus, PCR NEGATIVE (NEGATIVE); SARS-Cov-2 (COVID-19) PCR, MMC NEGATIVE (NEGATIVE)
[2023-04-12] MEDS ORDERED: Azithromycin 250 MG Tab PO ONE (15:20)
[2023-04-12] MEDS ORDERED: AZIT250 PO (15:20)
[2023-04-12 16:00] VITALS: BP 125/60
== END 2023-04-12 16:00 | disposition home or self-care (01) ==
LOC: ER 10:18
PROVIDERS: Physician Assistant
DX: J18.9 Pneumonia, unspecified organism (principal); I10 Essential (primary) hypertension; E11.9 Type 2 diabetes mellitus without complications; Z79.899 Other long term (current) drug therapy; Z79.01 Long term (current) use of anticoagulants; Z79.4 Long term (current) use of insulin
CPT/HCPCS: 0241U; 71046; 80053; 83880; 84484; 85025; 93005; 93010; 99284-25; A9270

== ENCOUNTER 2024-01-22 12:18 | Observation (INO) | payer MEDICARE, BC ==
[~2024-01-22] VITALS: Ht 167.6 cm; Wt 93.0 kg
[~2024-01-22 12:18] MED LIST changes: +AZIT250 PO
[2024-01-22 13:13] LABS: BASOPHILS ABSOLUTE AUTO 0.05 K/mm3 (0.00-0.23); BASOPHILS PERCENT AUTO 0 % (0-2); EOSINOPHILS ABSOLUTE AUTO 0.16 K/mm3 (0.00-0.68); EOSINOPHILS PERCENT AUTO 1 % (0-6); Hematocrit 44.1 % (37.0-53.0); Hemoglobin 14.5 g/dL (13.5-17.5); IMMATURE GRAN ABSOLUTE AUTO 0.26 K/mm3 (0.00-0.10); IMMATURE GRAN PERCENT AUTO 1 % (0-1); LYMPHOCYTES ABSOLUTE AUTO 2.37 K/mm3 (0.84-5.20); LYMPHOCYTES PERCENT AUTO 13 % (21-46); MONOCYTES ABSOLUTE AUTO 0.81 K/mm3 (0.16-1.47); MONOCYTES PERCENT AUTO 4 % (4-13); Mean Corpuscular HGB 29.4 pg (26.0-34.0); Mean Corpuscular HGB Conc 32.9 g/dL (31.5-36.5); Mean Corpuscular Volume 90 fL (80-100); Mean Platelet Volume 9.6 fL (9.1-12.4); NEUTROPHILS ABSOLUTE AUTO 15.06 K/mm3 (1.96-9.15); NEUTROPHILS PERCENT AUTO 80 % (41-73); Platelet Count 334 K/mm3 (150-400); RDW Coefficient Variation 15.2 % (11.7-14.2); RDW Standard Deviation 49.9 fL (35.1-46.3); Red Blood Cell Count 4.93 M/mm3 (4.30-5.90); White Blood Cell Count 18.71 K/mm3 (4.00-11.30)
[2024-01-22 13:34] LABS: Albumin, Blood 2.9 g/dL (3.4-5.0); Albumin/Globulin Ratio 0.6 (0.8-1.8); Bilirubin, Total 0.7 mg/dL (0.1-1.0); Bun/Creatinine Ratio 21.9 (12.0-20.0); Calcium, Blood 9.6 mg/dL (8.5-10.1); Creatinine, Blood 1.96 mg/dL (0.60-1.20); Globulin, Blood 4.5 g/dL (2.2-4.0); Potassium, Blood 3.7 mmol/L (3.5-5.5); Total Protein, Blood 7.4 g/dL (6.4-8.2)
[2024-01-22 16:39] LABS: Influenza A, PCR NEGATIVE (NEGATIVE); Influenza B, PCR NEGATIVE (NEGATIVE); Resp Syncytial Virus, PCR NEGATIVE (NEGATIVE); SARS-Cov-2 (COVID-19) PCR, MMC NEGATIVE (NEGATIVE)
[2024-01-22] MEDS ORDERED: Guaifenesin/Dextromethorphan Syrup 5 ML UDC PO PRN (20:35)
[2024-01-22] MEDS ORDERED: AMIODARONE HCL100 M1 PO (20:36)
[2024-01-22] MEDS ORDERED: GLIP10 PO (20:38)
[2024-01-22] MEDS ORDERED: FINA5 PO (20:38)
[2024-01-22] MEDS ORDERED: FESOTERODINE FUM8 MG PO (20:38)
[2024-01-22] MEDS ORDERED: ALLO100 PO (20:39)
[2024-01-22] MEDS ORDERED: JARDIANCE10 MG PO (20:39)
[2024-01-22] MEDS ORDERED: TOUJEO SOL300 UNIT/2 SC (20:40)
[2024-01-22 20:41] LABS: Adenovirus Not Detected (NOT DETECT); Bordetella pertussis Not Detected (NOT DETECT); Chlamydophila pneumoniae Not Detected (NOT DETECT); Coronavirus 229E Not Detected (NOT DETECT); Coronavirus HKU1 Not Detected (NOT DETECT); Coronavirus NL63 Not Detected (NOT DETECT); Coronavirus OC43 Not Detected (NOT DETECT); Human Metapneumovirus Not Detected (NOT DETECT); Human Rhinovirus/Enterovirus Not Detected (NOT DETECT); Influenza A/2009-H1 Not Detected (NOT DETECT); Influenza A/H1 Not Detected (NOT DETECT); Influenza A/H3 Not Detected (NOT DETECT); Influenza B Not Detected (NOT DETECT); Mycoplasma pneumoniae Not Detected (NOT DETECT); Parainfluenza Virus 1 Not Detected (NOT DETECT); Parainfluenza Virus 2 Not Detected (NOT DETECT); Parainfluenza Virus 3 Not Detected (NOT DETECT); Parainfluenza Virus 4 Not Detected (NOT DETECT); Respiratory Syncytial Virus Not Detected (NOT DETECT); SARS-Cov-2 (COVID-19), BioFire Not Detected (NOT DETECT)
[2024-01-22] MEDS ORDERED: HUMALOG100 UNIT/1 SC (20:41)
[2024-01-22] MEDS ORDERED: FURO80 PO (20:43)
[2024-01-22] MEDS ORDERED: Gabapentin 400 MG Cap PO SCH (21:00)
[2024-01-22] MEDS ORDERED: Metoprolol Succinate 50 MG TABCR PO SCH (21:00)
[2024-01-22] MEDS ORDERED: Apixaban 5 MG Tab PO SCH (21:00)
[2024-01-22 21:51] VITALS: BP 127/97
[2024-01-22] MEDS ORDERED: TOUJEO MAX300 UNIT/2 SC (22:12)
[2024-01-22] MEDS ORDERED: HUMALOG KW100 UNIT/1 SC (22:14)
[2024-01-22] MEDS ORDERED: PANTOPRAZOLE SO2010 PO (22:37)
[2024-01-22] MEDS ORDERED: CATAPRES0.1 MG PO (22:38)
[2024-01-22] MEDS ORDERED: MONT10T PO (22:40)
[2024-01-23] MEDS ORDERED: Insulin Human Lispro 100 Units/ML 3ML Syringe SC SCH
[2024-01-23 05:25] VITALS: BP 120/57
[2024-01-23 05:35] LABS: Hemoglobin 12.9 g/dL (13.5-17.5); Mean Corpuscular HGB 29.3 pg (26.0-34.0); Mean Corpuscular HGB Conc 33.1 g/dL (31.5-36.5); Mean Corpuscular Volume 89 fL (80-100); Mean Platelet Volume 9.4 fL (9.1-12.4); Platelet Count 302 K/mm3 (150-400); RDW Coefficient Variation 14.9 % (11.7-14.2); White Blood Cell Count 14.58 K/mm3 (4.00-11.30)
[2024-01-23 06:04] LABS: Bun/Creatinine Ratio 22.8 (12.0-20.0); Calcium, Blood 9.3 mg/dL (8.5-10.1); Creatinine, Blood 2.02 mg/dL (0.60-1.20); Potassium, Blood 3.3 mmol/L (3.5-5.5)
[2024-01-23 07:46] VITALS: BP 133/58
--- NOTE | 2024-01-23 07:54 | NUR ---
SHIFT SUMMARY PT ARRIVED BY WHEELCHAIR. ABLE TO STAND AND AMBULATE INDEPENDENTLY. PT TOOK SHOWER SHORTLY AFTER ARRIVAL. SACRUM HAS SMALL RED AREA, BLANCHABLE, SKIN INTACT. APPLIED MEPILEX PROFILACTICALLY. PT IN BED, SLEEPING FOR DURATION OF SHIFT MINUS ONE TIME UP TO VOID. PT HAS BEEN PLEASANT AND COOPERATIVE WITH CARE.
[2024-01-23] MEDS ORDERED: AMIODARONE HCL100 M3 PO (08:36)
[2024-01-23] MEDS ORDERED: Tamsulosin HCl 0.4 MG Cap PO SCH (09:00)
[2024-01-23] MEDS ORDERED: Enoxaparin 40 MG/0.4 ML SYR SC SCH (09:00)
[2024-01-23] MEDS ORDERED: Atorvastatin 40 MG Tab PO SCH (09:00)
[2024-01-23] MEDS ORDERED: Amiodarone HCl 200 MG Tab PO SCH (09:00)
[2024-01-23] MEDS ORDERED: Potassium Chloride 20 MEQ TabCR PO ONE (10:00)
[2024-01-23] MEDS ORDERED: Benzonatate 100 MG Cap PO PRN (10:05)
[2024-01-23] MEDS ORDERED: BENZ100A PO (13:07)
--- NOTE | 2024-01-23 15:30 | NUR ---
DISCHARGE NOTE- PT WAS GIVEN VERBAL AND WRITTEN DISCHARGE INSTRUCTIONS AND ACKNOWLEDGED UNDERSTANDING OF THEM. PT IV AND TELE DC'D PRIOR TO DISCHARGE. PT DRESSED HIMSELF AND WAS ESCORTED OUT VIA WC BY PARQUETRY LAYER. NO S&S OF DISTRESS NOTED AT THE TIME OF DISCHARGE.
[2024-01-24] MEDS ORDERED: Allopurinol 100 MG Tab PO SCH (09:00)
[2024-01-24] MEDS ORDERED: Amiodarone HCl 200 MG Tab PO SCH (09:00)
[2024-01-24] MEDS ORDERED: Furosemide 80 MG Tab PO SCH (09:00)
[2024-01-24] MEDS ORDERED: Finasteride 5 MG Tab PO SCH (09:00)
== END 2024-01-23 15:21 | disposition home or self-care (01) ==
LOC: ER 12:18 → ERHOLD 12:19 → MEDS 12:19
PROVIDERS: Nurse Practitioner Acute Care; Physician Assistant; Student in an Organized Health Care Education/Training Program; ADMIT Internal Medicine
DX: R07.89 Other chest pain (principal); E78.5 Hyperlipidemia, unspecified; I12.9 Hypertensive chronic kidney disease with stage 1 through stage 4 chronic kidney disease, or unspecified chronic kidney disease; E11.22 Type 2 diabetes mellitus with diabetic chronic kidney disease; N18.32 Chronic kidney disease, stage 3b; N40.0 Benign prostatic hyperplasia without lower urinary tract symptoms; M10.9 Gout, unspecified; I48.20 Chronic atrial fibrillation, unspecified; Z79.01 Long term (current) use of anticoagulants; Z79.4 Long term (current) use of insulin; Z79.899 Other long term (current) drug therapy
CPT/HCPCS: 0202U; 0241U; 36415; 71046; 80048; 80053; 82947; 83880; 84484; 85025; 85027; 85651; 86140; 93005; 93010; 99285-25; A9270; G0378

== ENCOUNTER → 2024-11-09 | Outpatient (CLI) | payer MEDICARE, BC ==
[~2024-11-09] MED LIST changes: +AMIODARONE HCL100 M1 PO; +AMIODARONE HCL100 M3 PO; +BENZ100A PO; +CATAPRES0.1 MG PO; +FESOTERODINE FUM8 MG PO; +HUMALOG100 UNIT/1 SC; +JARDIANCE10 MG PO; +MONT10T PO; +PANTOPRAZOLE SO2010 PO; +TOUJEO SOL300 UNIT/2 SC
[2024-11-09 14:30] LABS: Creatinine, Urine Random 32.5 mg/dL (27.00-270.00); Protein, Urine Random 8.7 mg/dL (0.0-11.9); Protein/Creat Ratio, Ur Random 0.3
[2024-11-09 14:59] LABS: Microalbumin, Urine Quant. 21.7 mg/L (0.000-20.000); Protein, Urine Quantitative 8.9 mg/dL (0.0-11.9)
== END | disposition home or self-care (01) ==
LOC: LAB SHORT 12:00 → LAB 12:00 → LAB FUT 11-04 13:00 → EDSTATUS 11-04 13:00
PROVIDERS: Internal Medicine Nephrology
DX: E11.22 Type 2 diabetes mellitus with diabetic chronic kidney disease (principal); E11.21 Type 2 diabetes mellitus with diabetic nephropathy; N18.30 Chronic kidney disease, stage 3 unspecified; D63.1 Anemia in chronic kidney disease; N25.81 Secondary hyperparathyroidism of renal origin; E55.9 Vitamin D deficiency, unspecified; E78.00 Pure hypercholesterolemia, unspecified; R76.9 Abnormal immunological finding in serum, unspecified; R94.5 Abnormal results of liver function studies; R94.6 Abnormal results of thyroid function studies; N40.1 Benign prostatic hyperplasia with lower urinary tract symptoms
CPT/HCPCS: 81050; 82043; 82570; 84156